=== PATIENT | female | born 1945 | race Caucasian/White ===

== ENCOUNTER 2021-09-24 00:51 | Inpatient (IN) ==
[2021-09-24] MEDS ORDERED: Naloxone 0.4 MG/ML INJ IVP PRN (04:59)
[2021-09-24] MEDS ORDERED: Acetaminophen 325 MG TABLET PO PRN (04:59)
[2021-09-24] MEDS ORDERED: Ondansetron 4 MG/2 ML VIAL IVP PRN (04:59)
[2021-09-24] MEDS ORDERED: Perflutren Lipid Microsphere 1.3 ML in 0.9 % Sodium Chloride 8.7 ML IVP PRN (05:35)
[2021-09-24] MEDS ORDERED: *HR* Heparin 5,000 UNIT/ML VIAL IVP ONE (05:42)
[2021-09-24] MEDS ORDERED: *HR* Heparin 5,000 UNIT/ML VIAL IVP PRN (05:42)
[2021-09-24] MEDS ORDERED: Heparin 25,000UNIT/250ML 1/2NS 25,000 UNIT/250 ML IV.SOLN IVC SCH (05:45)
[2021-09-24 05:58] LABS: Immature Granulocytes % 0.3 % (0-4); Red Cell Distribution Width 17.7 % (11.5-14.5)
[2021-09-24 06:00] LABS: Basophils # 0.1 K/mcL (0.0-0.2); Basophils % 0.9 %; Eosinophils # 0.3 K/mcL (0.0-0.6); Eosinophils % 3.1 %; Hematocrit 29.4 % (35.3-44.9); Hemoglobin 8.3 g/dL (11.5-15.4); Lymphocytes # 2.1 K/mcL (0.6-4.6); Lymphocytes % 23.9 %; Mean Corpuscular HGB Conc 28.2 g/dL (31.6-35.5); Mean Corpuscular Hemoglobin 25.1 pg (28.0-33.3); Mean Corpuscular Volume 88.8 fL (83.0-100.0); Mean Platelet Volume 12.7 fL (9.4-12.4); Monocytes # 0.7 K/mcL (0.0-1.3); Monocytes % 7.8 %; Neutrophils # 5.6 K/mcL (1.6-8.9); Platelet Count 218 K/mcL (140-400); Red Blood Count 3.31 M/mcL (3.82-4.97); White Blood Count 8.8 K/mcL (4.3-11.1)
[2021-09-24] MEDS: levETIRAcetam 250 MG TABLET PO SCH ×2 (06:03→17:53)
[2021-09-24 06:08] LABS: INR 1.6; Prothrombin Time 17.6 Seconds (9.4-12.1)
[2021-09-24 06:10] LABS: Activated Partial Thrombo Time 54.8 Seconds (26.0-36.0)
[2021-09-24 06:12] LABS: Acetaminophen < 10 mcg/mL (10-20); Alanine Aminotransferase 13 Units/L (7-52); Albumin 3.5 g/dL (3.5-5.7); Alkaline Phosphatase 109 Units/L (34-104); Aspartate Amino Transferase 20 Units/L (13-39); BUN/Creatinine Ratio 26 (6-26); Bilirubin,Total 0.4 mg/dL (0.3-1.0); Blood Urea Nitrogen 45 mg/dL (8-23); Calcium 8.9 mg/dL (8.6-10.3); Carbon Dioxide 31 mEq/L (23-29); Chloride 100 mEq/L (98-107); Chol/HDL Ratio 2.8 (0-4.9); Cholesterol 108 mg/dL (< 200); Globulin 3.5 g/dL (2.4-3.5); Glucose 61 mg/dL (70-105); HDL Cholesterol 38 mg/dL (40-59); LDL Cholesterol,Calculated 52 mg/dL (< 100); Osmolality,Calculated 293 (280-300); Phosphorous 4.1 mg/dL (2.7-4.5); Potassium 5.9 mEq/L (3.5-5.1); Salicylate < 2.5 mg/dL (15.0-30.0); Sodium 137 mEq/L (136-145); Triglycerides 88 mg/dL (< 150); Troponin I 0.15 ng/mL (< 0.04); eGFR For African Americans 35 (> 60); eGFR For Non-African Americans 29 (> 60)
[2021-09-24 06:15] LABS: Heparin anti-factor XA UFH 1.65 IU/mL (0.30-0.70)
[2021-09-24] MEDS ORDERED: Dextrose Gel 15 GM/37.5 ML TUBE PO PRN ×2 (06:19)
[2021-09-24] MEDS ORDERED: *HR* Dextrose 50 % in Water (Syg) 50 ML SYRINGE IVP PRN (06:19)
[2021-09-24] MEDS ORDERED: D5% in Water 1,000 ML IVC PRN (06:19)
[2021-09-24 06:20] LABS: Thyroid Stimulating Hormone 5.585 mcIU/mL (0.340-5.600)
[2021-09-24 06:26] LABS: Folate 12.4 ng/mL (3.0-16.0)
[2021-09-24] MEDS ORDERED: *HR* Dextrose 50 % in Water (Syg) 50 ML SYRINGE IVP ONE (06:39)
[2021-09-24] MEDS ORDERED: Insulin Human Regular 10 UNIT in 0.9 % Sodium Chloride 10 ML IV ONE (06:39)
[2021-09-24] MEDS ORDERED: Calcium Gluconate 1gm/50mL 1 GM/50 ML BAG IVPB ONE (06:47)
[2021-09-24 07:00] LABS: Hypochromasia Present (Not Present); Platelet Estimate Normal (Normal)
[2021-09-24] MEDS ORDERED: Ipratropium/Albuterol Neb 3 ML ONE (07:26)
[2021-09-24] MEDS: SODIUM ZIRCONIUM CYCLOSILICATE 5 GM POWD.PACK PO SCH (07:52)
[2021-09-24] MEDS: Metoprolol XL (24 HR) Succ 25 MG TAB.ER.24H PO SCH (07:52)
[2021-09-24] MEDS: Aspirin 81 MG TAB.CHEW PO SCH (07:52)
[2021-09-24] MEDS: Insulin LISPRO 300 UNITS/3 ML VIAL SUBQ SCH ×3 (07:53→16:32)
[2021-09-24] MEDS: Heparin 25,000 UNIT/250 ML 25,000 UNIT/250 ML IV.SOLN IVC SCH (08:17)
[2021-09-24] MEDS ORDERED: Chlorhexidine Rinse 15 ML MOUTHWASH MM SCH (09:00)
[2021-09-24] MEDS ORDERED: Furosemide 40 MG/4 ML VIAL IVP SCH (09:00)
[2021-09-24 09:59] LABS: Estimated Average Glucose 163 mg/dl; Hemoglobin A1C 7.3 %
[2021-09-24] MEDS: Ipratropium/Albuterol Neb 3 ML IH SCH ×3 (11:10→21:55)
[2021-09-24] MEDS: Budesonide/Formoterol 160/4.5 1 PUFF INH IH SCH ×2 (11:10→21:55)
[2021-09-24 14:04] LABS: Procalcitonin 0.14 ng/mL (0.00-0.15)
[2021-09-24 14:50] LABS: Calcium 8.9 mg/dL (8.6-10.3); Potassium 5.7 mEq/L (3.5-5.1)
[2021-09-24 14:52] LABS: Uric Acid 6.9 mg/dL (2.3-7.6)
[2021-09-24 14:56] LABS: Troponin I 0.13 ng/mL (< 0.04)
[2021-09-24] MEDS: *HR* Heparin 5,000 UNIT/ML VIAL IVP PRN ×2 (15:41→22:59)
[2021-09-24] MEDS: Furosemide 40 MG/4 ML VIAL IVP SCH (21:59)
[2021-09-24] MEDS: Melatonin 3 MG TABLET PO PRN (21:59)
[2021-09-24 23:13] LABS: Bilirubin,Urine Negative (Negative); Blood,Urine Small (Negative); Clarity,Urine Clear (Clear); Color,Urine Light-Yellow (Yellow); Glucose,Urine (UA) Normal (Normal); Ketones,Urine Negative (Negative); Leukocyte Esterase,Urine Moderate (Negative); Mucus,Urine Few per lpf (None-Few); Nitrite,Urine Negative (Negative); Protein,Urine 100 mg/dL (Neg-Trace); RBC,Urine 15-30 per hpf (0-3); Specific Gravity,Urine 1.017 (1.010-1.025); Squamous Epithelial Cell,Urine Few per hpf (None-Few); Urobilinogen,Urine Normal (Normal)
[2021-09-24 23:21] LABS: Sodium, Urine 84.9 mEq/L
[2021-09-24 23:22] LABS: Amphetamine Screen,Urine Negative ng/mL (Cutoff=1000); Barbiturate Screen,Urine Negative ng/mL (Cutoff=200); Benzodiazepines Screen,Urine Negative ng/mL (Cutoff=200); Cannabinoid Screen,Urine Negative ng/mL (Cutoff = 50); Cocaine Screen,Urine Negative ng/mL (Cutoff= 300); Opiate Screen,Urine Negative ng/mL (Cutoff=300); Phencyclidine Screen,Urine Negative ng/mL (Cutoff=25)
[2021-09-25] MEDS ORDERED: *HR* LORazepam 2 MG/ML VIAL IVP ONE (00:19)
[2021-09-25] MEDS ORDERED: Haloperidol Lactate 5 MG/ML VIAL IVP ONE ×4 (01:54→10:53)
[2021-09-25 03:18] LABS: Basophils # 0.1 K/mcL (0.0-0.2); Basophils % 0.5 %; Eosinophils # 0.3 K/mcL (0.0-0.6); Eosinophils % 3.2 %; Hematocrit 28.4 % (35.3-44.9); Hemoglobin 8.2 g/dL (11.5-15.4); Immature Granulocytes % 0.4 % (0-4); Lymphocytes # 2.3 K/mcL (0.6-4.6); Lymphocytes % 22.9 %; Mean Corpuscular HGB Conc 28.9 g/dL (31.6-35.5); Mean Corpuscular Hemoglobin 25.2 pg (28.0-33.3); Mean Corpuscular Volume 87.1 fL (83.0-100.0); Mean Platelet Volume 12.4 fL (9.4-12.4); Monocytes # 0.8 K/mcL (0.0-1.3); Monocytes % 7.5 %; Nucleated Red Blood Cells 0.2 /100 WBC (0); Platelet Count 191 K/mcL (140-400); Red Blood Count 3.26 M/mcL (3.82-4.97); Red Cell Distribution Width 17.7 % (11.5-14.5); Segmented Neutrophils % 65.5 %
[2021-09-25 03:18] LABS: VBG HCO3 30 mEq/L (21-27); VBG PCO2 48 mmHg (41-51); VBG PO2 61 mmHg (25-50)
[2021-09-25 03:19] LABS: Neutrophils # 6.6 K/mcL (1.6-8.9)
[2021-09-25] MEDS: Ipratropium/Albuterol Neb 3 ML IH SCH ×4 (03:29→20:10)
[2021-09-25 03:36] LABS: Anisocytosis 1+ (Not Present); Hypochromasia Present (Not Present); Potassium 5.2 mEq/L (3.5-5.1)
[2021-09-25 03:37] LABS: Platelet Estimate Normal (Normal)
[2021-09-25 03:42] LABS: Iron 23 mcg/dL (50-170)
[2021-09-25] MEDS: Heparin 25,000 UNIT/250 ML 25,000 UNIT/250 ML IV.SOLN IVC SCH ×2 (04:51→04:53)
[2021-09-25 05:07] LABS: ABG Base Excess 8 mEq/L (-2 to 3); ABG HCO3 35 mEq/L (21-27); ABG Oxygen Saturation 99 % (95-98); ABG PCO2 65 mmHg (35-45); ABG PH 7.34 pH Units (7.32-7.45); ABG PO2 162 mmHg (85-104); ABG TCO2 37 mEq/L (20-26)
[2021-09-25] MEDS ORDERED: levETIRAcetam 1,000 MG in 0.9 % Sodium Chloride 100 ML IVPB ONE (06:39)
[2021-09-25] MEDS: levETIRAcetam 250 MG TABLET PO SCH (06:47)
[2021-09-25] MEDS: Insulin LISPRO 300 UNITS/3 ML VIAL SUBQ SCH ×3 (07:48→16:52)
[2021-09-25] MEDS: Furosemide 40 MG/4 ML VIAL IVP SCH ×2 (07:48→21:22)
[2021-09-25] MEDS: Budesonide/Formoterol 160/4.5 1 PUFF INH IH SCH ×2 (08:13→20:10)
[2021-09-25] MEDS: Metoprolol XL (24 HR) Succ 25 MG TAB.ER.24H PO SCH (08:52)
[2021-09-25] MEDS: SODIUM ZIRCONIUM CYCLOSILICATE 5 GM POWD.PACK PO SCH (08:52)
[2021-09-25] MEDS: Aspirin 81 MG TAB.CHEW PO SCH (08:53)
[2021-09-25] MEDS ORDERED: *HR* Metoprolol 5 MG/5 ML VIAL IVP PRN (11:07)
[2021-09-25] MEDS ORDERED: *HR* Metoprolol 5 MG/5 ML VIAL IVP SCH (12:15)
[2021-09-25 15:12] LABS: Ferritin 105 ng/mL (10-120)
[2021-09-25] MEDS ORDERED: levETIRAcetam 250 MG TABLET PO SCH (18:00)
[2021-09-25] MEDS: QUEtiapine Fumarate 25 MG TABLET PO SCH (21:06)
[2021-09-25] MEDS: *HR* Metoprolol 5 MG/5 ML VIAL IVP SCH (21:19)
[2021-09-25] MEDS: levETIRAcetam 1,000 MG in 0.9 % Sodium Chloride 100 ML IVPB SCH (21:24)
[2021-09-25] MEDS: *HR* Heparin 5,000 UNIT/ML VIAL IVP PRN (22:15)
[2021-09-26] MEDS ORDERED: Haloperidol Lactate 5 MG/ML VIAL IVP ONE ×4 (00:17→22:17)
[2021-09-26] MEDS: *HR* Metoprolol 5 MG/5 ML VIAL IVP SCH ×4 (02:57→20:03)
[2021-09-26] MEDS: Ipratropium/Albuterol Neb 3 ML IH SCH ×4 (03:40→19:39)
[2021-09-26 06:10] LABS: Calcium 8.8 mg/dL (8.6-10.3); Magnesium 1.7 mg/dL (1.6-2.6); Potassium 4.5 mEq/L (3.5-5.1)
[2021-09-26 06:17] LABS: Basophils # 0.1 K/mcL (0.0-0.2); Basophils % 0.8 %; Eosinophils # 0.2 K/mcL (0.0-0.6); Hematocrit 27.1 % (35.3-44.9); Hemoglobin 7.7 g/dL (11.5-15.4); Immature Granulocytes % 0.3 % (0-4); Lymphocytes # 1.7 K/mcL (0.6-4.6); Mean Corpuscular HGB Conc 28.4 g/dL (31.6-35.5); Mean Platelet Volume 12.8 fL (9.4-12.4); Monocytes # 0.6 K/mcL (0.0-1.3); Monocytes % 8.2 %; Neutrophils # 4.5 K/mcL (1.6-8.9); Platelet Count 169 K/mcL (140-400); Red Blood Count 3.08 M/mcL (3.82-4.97); Red Cell Distribution Width 17.9 % (11.5-14.5); Segmented Neutrophils % 63.7 %; White Blood Count 7.1 K/mcL (4.3-11.1)
[2021-09-26] MEDS: Aspirin 81 MG TAB.CHEW PO SCH (08:14)
[2021-09-26] MEDS: Insulin LISPRO 300 UNITS/3 ML VIAL SUBQ SCH ×4 (08:14→17:04)
[2021-09-26] MEDS: SODIUM ZIRCONIUM CYCLOSILICATE 5 GM POWD.PACK PO SCH (08:15)
[2021-09-26] MEDS: Heparin 25,000 UNIT/250 ML 25,000 UNIT/250 ML IV.SOLN IVC SCH ×2 (08:16)
[2021-09-26] MEDS: Furosemide 40 MG/4 ML VIAL IVP SCH ×2 (08:33→20:03)
[2021-09-26] MEDS: levETIRAcetam 1,000 MG in 0.9 % Sodium Chloride 100 ML IVPB SCH ×2 (09:45→20:02)
[2021-09-26] MEDS: Budesonide/Formoterol 160/4.5 1 PUFF INH IH SCH ×2 (09:50→19:40)
[2021-09-26] MEDS: QUEtiapine Fumarate 25 MG TABLET PO SCH (20:04)
[2021-09-26] MEDS ORDERED: *HR* HYDROcodone/Acet 10/325 mg TABLET PO ONE (21:35)
[2021-09-26] MEDS ORDERED: *HR* Metoprolol 5 MG/5 ML VIAL IVP ONE (21:59)
[2021-09-26] MEDS: rOPINIRole 0.25 MG TABLET PO SCH (23:01)
[2021-09-27] MEDS: Pregabalin 50 MG CAPSULE PO SCH ×3 (00:03→20:33)
[2021-09-27] MEDS ORDERED: *HR* Metoprolol 5 MG/5 ML VIAL IVP ONE (01:14)
[2021-09-27] MEDS: *HR* Metoprolol 5 MG/5 ML VIAL IVP SCH ×4 (01:28→20:33)
[2021-09-27] MEDS: Ipratropium/Albuterol Neb 3 ML IH SCH ×4 (03:46→23:03)
[2021-09-27 04:07] LABS: Basophils % 0.4 %; Eosinophils % 0.4 %; Hematocrit 27.7 % (35.3-44.9); Immature Granulocytes % 0.4 % (0-4); Lymphocytes # 1.2 K/mcL (0.6-4.6); Lymphocytes % 15.1 %; Mean Corpuscular HGB Conc 28.9 g/dL (31.6-35.5); Mean Corpuscular Hemoglobin 24.8 pg (28.0-33.3); Mean Corpuscular Volume 85.8 fL (83.0-100.0); Mean Platelet Volume 11.8 fL (9.4-12.4); Monocytes # 0.8 K/mcL (0.0-1.3); Monocytes % 10.5 %; Neutrophils # 5.7 K/mcL (1.6-8.9); Platelet Count 181 K/mcL (140-400); Red Blood Count 3.23 M/mcL (3.82-4.97); Red Cell Distribution Width 17.8 % (11.5-14.5); Segmented Neutrophils % 73.2 %; White Blood Count 7.8 K/mcL (4.3-11.1)
[2021-09-27 04:17] LABS: Calcium 8.8 mg/dL (8.6-10.3); Potassium 4.4 mEq/L (3.5-5.1)
[2021-09-27] MEDS: Budesonide/Formoterol 160/4.5 1 PUFF INH IH SCH ×2 (07:49→23:03)
[2021-09-27] MEDS: Aspirin 81 MG TAB.CHEW PO SCH (08:46)
[2021-09-27] MEDS: levETIRAcetam 1,000 MG in 0.9 % Sodium Chloride 100 ML IVPB SCH (08:47)
[2021-09-27] MEDS: Insulin LISPRO 300 UNITS/3 ML VIAL SUBQ SCH ×3 (08:48→16:42)
[2021-09-27] MEDS: Furosemide 40 MG TABLET PO SCH ×2 (12:02→16:42)
[2021-09-27] MEDS: Isosorbide MONOnitrate (24 HR) 30 MG TAB.ER.24H PO SCH (12:02)
[2021-09-27] MEDS: levETIRAcetam 250 MG TABLET PO SCH (16:41)
[2021-09-27] MEDS: hydrALAZINE 25 MG TABLET PO SCH (16:42)
[2021-09-27] MEDS: QUEtiapine Fumarate 25 MG TABLET PO SCH (20:33)
[2021-09-27] MEDS: rOPINIRole 0.25 MG TABLET PO SCH (20:35)
[2021-09-28] MEDS: hydrALAZINE 25 MG TABLET PO SCH ×4 (00:06→23:11)
[2021-09-28] MEDS: Ipratropium/Albuterol Neb 3 ML IH SCH ×4 (04:45→20:36)
[2021-09-28] MEDS: levETIRAcetam 250 MG TABLET PO SCH ×2 (05:14→18:26)
[2021-09-28 05:26] LABS: Hemoglobin 7.2 g/dL (11.5-15.4); Red Cell Distribution Width 17.8 % (11.5-14.5)
[2021-09-28 05:27] LABS: Hematocrit 25.3 % (35.3-44.9); Mean Corpuscular HGB Conc 28.5 g/dL (31.6-35.5); Mean Corpuscular Hemoglobin 24.8 pg (28.0-33.3); Mean Corpuscular Volume 87.2 fL (83.0-100.0); Mean Platelet Volume 12.5 fL (9.4-12.4); Platelet Count 143 K/mcL (140-400); White Blood Count 8.1 K/mcL (4.3-11.1)
[2021-09-28 05:45] LABS: Iron 14 mcg/dL (50-170)
[2021-09-28 05:53] LABS: Calcium 8.5 mg/dL (8.6-10.3)
[2021-09-28] MEDS: Insulin LISPRO 300 UNITS/3 ML VIAL SUBQ SCH ×3 (08:17→17:05)
[2021-09-28] MEDS: Furosemide 40 MG TABLET PO SCH ×2 (08:18→16:21)
[2021-09-28] MEDS: Metoprolol XL (24 HR) Succ 25 MG TAB.ER.24H PO SCH (08:18)
[2021-09-28] MEDS: Aspirin 81 MG TAB.CHEW PO SCH (08:18)
[2021-09-28] MEDS: Isosorbide MONOnitrate (24 HR) 30 MG TAB.ER.24H PO SCH (08:18)
[2021-09-28] MEDS: Pregabalin 50 MG CAPSULE PO SCH ×2 (08:18→19:57)
[2021-09-28] MEDS ORDERED: Furosemide 40 MG/4 ML VIAL IVP SCH (09:00)
[2021-09-28] MEDS: Budesonide/Formoterol 160/4.5 1 PUFF INH IH SCH ×2 (09:54→20:36)
[2021-09-28 10:52] LABS: % Iron Saturation 4 % (15-50); Transferrin 237 mg/dL (203-362)
[2021-09-28] MEDS ORDERED: SODIUM CHLORIDE/NAHCO3/KCL/PEG 4,000 ML SOLN.RECON PO ONE (17:00)
[2021-09-28] MEDS: rOPINIRole 1 MG TABLET PO SCH (19:57)
[2021-09-28] MEDS: QUEtiapine Fumarate 25 MG TABLET PO SCH (19:58)
[2021-09-29] MEDS: Ipratropium/Albuterol Neb 3 ML IH SCH ×4 (03:25→20:56)
[2021-09-29] MEDS: levETIRAcetam 250 MG TABLET PO SCH ×2 (05:03→18:07)
[2021-09-29 05:34] LABS: Basophils % 0.2 %; Red Cell Distribution Width 17.5 % (11.5-14.5)
[2021-09-29 05:36] LABS: Eosinophils # 0.2 K/mcL (0.0-0.6); Eosinophils % 2.6 %; Hematocrit 27.4 % (35.3-44.9); Hemoglobin 7.7 g/dL (11.5-15.4); Immature Granulocytes % 0.2 % (0-4); Lymphocytes # 1.2 K/mcL (0.6-4.6); Lymphocytes % 13.8 %; Mean Corpuscular HGB Conc 28.1 g/dL (31.6-35.5); Mean Corpuscular Hemoglobin 24.5 pg (28.0-33.3); Mean Corpuscular Volume 87.3 fL (83.0-100.0); Mean Platelet Volume 12.1 fL (9.4-12.4); Monocytes # 0.8 K/mcL (0.0-1.3); Neutrophils # 6.6 K/mcL (1.6-8.9); Nucleated Red Blood Cells 0.2 /100 WBC (0); Platelet Count 141 K/mcL (140-400); Red Blood Count 3.14 M/mcL (3.82-4.97); Segmented Neutrophils % 74.2 %; White Blood Count 8.9 K/mcL (4.3-11.1)
[2021-09-29 06:50] LABS: Calcium 8.5 mg/dL (8.6-10.3); Potassium 3.8 mEq/L (3.5-5.1)
[2021-09-29] MEDS: Isosorbide MONOnitrate (24 HR) 30 MG TAB.ER.24H PO SCH (07:45)
[2021-09-29] MEDS: Pregabalin 50 MG CAPSULE PO SCH ×2 (07:45→20:02)
[2021-09-29] MEDS: hydrALAZINE 25 MG TABLET PO SCH ×3 (07:45→23:17)
[2021-09-29] MEDS: Metoprolol XL (24 HR) Succ 25 MG TAB.ER.24H PO SCH (07:46)
[2021-09-29] MEDS: Insulin LISPRO 300 UNITS/3 ML VIAL SUBQ SCH ×3 (07:48→18:07)
[2021-09-29] MEDS: Furosemide 40 MG TABLET PO SCH ×2 (07:48→18:07)
[2021-09-29] MEDS: Aspirin 81 MG TAB.CHEW PO SCH (07:48)
[2021-09-29] MEDS: Budesonide/Formoterol 160/4.5 1 PUFF INH IH SCH ×2 (08:47→20:56)
[2021-09-29] MEDS ORDERED: Lidocaine -MPF 2% 5 ML VIAL ONE (13:50)
[2021-09-29] MEDS: QUEtiapine Fumarate 25 MG TABLET PO SCH (20:03)
[2021-09-29] MEDS: Apixaban 5 MG TABLET PO SCH (20:03)
[2021-09-29] MEDS: rOPINIRole 1 MG TABLET PO SCH (20:03)
[2021-09-30] MEDS ORDERED: *HR* Metoprolol 5 MG/5 ML VIAL IVP ONE (01:55)
[2021-09-30] MEDS: Ipratropium/Albuterol Neb 3 ML IH SCH ×4 (03:34→21:19)
[2021-09-30] MEDS: levETIRAcetam 250 MG TABLET PO SCH ×2 (05:07→16:19)
[2021-09-30 05:35] LABS: Basophils % 0.2 %; Eosinophils # 0.2 K/mcL (0.0-0.6); Eosinophils % 2.2 %; Hematocrit 28.1 % (35.3-44.9); Immature Granulocytes % 0.3 % (0-4); Lymphocytes # 1.4 K/mcL (0.6-4.6); Lymphocytes % 15.2 %; Mean Corpuscular HGB Conc 28.5 g/dL (31.6-35.5); Mean Corpuscular Hemoglobin 24.5 pg (28.0-33.3); Mean Corpuscular Volume 86.2 fL (83.0-100.0); Mean Platelet Volume 12.3 fL (9.4-12.4); Monocytes # 0.9 K/mcL (0.0-1.3); Monocytes % 9.9 %; Neutrophils # 6.5 K/mcL (1.6-8.9); Platelet Count 147 K/mcL (140-400); Red Blood Count 3.26 M/mcL (3.82-4.97); Red Cell Distribution Width 17.4 % (11.5-14.5); Segmented Neutrophils % 72.2 %
[2021-09-30 05:37] LABS: Calcium 8.4 mg/dL (8.6-10.3); Potassium 3.7 mEq/L (3.5-5.1)
[2021-09-30 05:55] LABS: Anisocytosis 1+ (Not Present); Hypochromasia Present (Not Present); Platelet Estimate Normal (Normal)
[2021-09-30] MEDS: Insulin LISPRO 300 UNITS/3 ML VIAL SUBQ SCH ×3 (08:49→16:19)
[2021-09-30] MEDS: Aspirin 81 MG TAB.CHEW PO SCH (08:55)
[2021-09-30] MEDS: hydrALAZINE 25 MG TABLET PO SCH (08:55)
[2021-09-30] MEDS: Apixaban 5 MG TABLET PO SCH ×2 (08:57→20:15)
[2021-09-30] MEDS: Furosemide 40 MG TABLET PO SCH ×2 (08:58→16:19)
[2021-09-30] MEDS: Metoprolol XL (24 HR) Succ 25 MG TAB.ER.24H PO SCH (08:58)
[2021-09-30] MEDS: Isosorbide MONOnitrate (24 HR) 30 MG TAB.ER.24H PO SCH (08:58)
[2021-09-30] MEDS: Pregabalin 50 MG CAPSULE PO SCH ×2 (08:58→20:15)
[2021-09-30 09:44] LABS: % Iron Saturation 6 % (15-50); Transferrin 284 mg/dL (200-400)
[2021-09-30] MEDS: Budesonide/Formoterol 160/4.5 1 PUFF INH IH SCH ×2 (11:01→21:19)
[2021-09-30] MEDS ORDERED: Iron Sucrose Complex 400 MG in 0.9 % Sodium Chloride 250 ML IVPB ONE (14:14)
[2021-09-30] MEDS: rOPINIRole 1 MG TABLET PO SCH (20:14)
[2021-09-30] MEDS: QUEtiapine Fumarate 25 MG TABLET PO SCH (20:16)
[2021-10-01] MEDS: Melatonin 3 MG TABLET PO PRN (00:55)
[2021-10-01] MEDS ORDERED: *HR* Metoprolol 5 MG/5 ML VIAL IVP ONE (01:44)
[2021-10-01] MEDS: Ipratropium/Albuterol Neb 3 ML IH SCH ×4 (03:28→22:07)
[2021-10-01 03:35] LABS: ABG Base Excess 9 mEq/L (-2 to 3); ABG HCO3 36 mEq/L (21-27); ABG Oxygen Saturation 91 % (95-98); ABG PCO2 55 mmHg (35-45); ABG PH 7.42 pH Units (7.32-7.45); ABG PO2 63 mmHg (85-104); ABG TCO2 37 mEq/L (20-26)
[2021-10-01 04:28] LABS: Basophils % 0.3 %; Eosinophils # 0.2 K/mcL (0.0-0.6); Eosinophils % 2.2 %; Hemoglobin 8.4 g/dL (11.5-15.4); Immature Granulocytes % 0.4 % (0-4); Lymphocytes # 1.8 K/mcL (0.6-4.6); Lymphocytes % 17.2 %; Mean Corpuscular Hemoglobin 24.7 pg (28.0-33.3); Mean Corpuscular Volume 85.3 fL (83.0-100.0); Mean Platelet Volume 11.6 fL (9.4-12.4); Monocytes # 0.9 K/mcL (0.0-1.3); Monocytes % 8.5 %; Neutrophils # 7.4 K/mcL (1.6-8.9); Platelet Count 161 K/mcL (140-400); Red Cell Distribution Width 17.3 % (11.5-14.5); Segmented Neutrophils % 71.4 %; White Blood Count 10.4 K/mcL (4.3-11.1)
[2021-10-01 04:45] LABS: Calcium 8.2 mg/dL (8.6-10.3); Potassium 3.6 mEq/L (3.5-5.1)
[2021-10-01] MEDS: levETIRAcetam 250 MG TABLET PO SCH ×2 (05:24→18:25)
[2021-10-01] MEDS: Metoprolol XL (24 HR) Succ 25 MG TAB.ER.24H PO SCH (09:54)
[2021-10-01] MEDS: Insulin LISPRO 300 UNITS/3 ML VIAL SUBQ SCH ×3 (09:54→16:58)
[2021-10-01] MEDS: Isosorbide MONOnitrate (24 HR) 30 MG TAB.ER.24H PO SCH (09:55)
[2021-10-01] MEDS: Aspirin 81 MG TAB.CHEW PO SCH (09:55)
[2021-10-01] MEDS: Apixaban 5 MG TABLET PO SCH ×2 (09:55→20:13)
[2021-10-01] MEDS: Pregabalin 50 MG CAPSULE PO SCH ×2 (09:55→20:13)
[2021-10-01] MEDS: Furosemide 40 MG TABLET PO SCH ×2 (09:57→18:25)
[2021-10-01] MEDS: Budesonide/Formoterol 160/4.5 1 PUFF INH IH SCH ×2 (09:57→22:07)
[2021-10-01 13:46] LABS: VBG HCO3 36 mEq/L (21-27); VBG PCO2 71 mmHg (41-51); VBG PH 7.32 pH Units (7.32-7.42); VBG PO2 92 mmHg (25-50)
[2021-10-01 17:02] LABS: VBG HCO3 40 mEq/L (21-27); VBG PCO2 81 mmHg (41-51); VBG PO2 67 mmHg (25-50)
[2021-10-01] MEDS ORDERED: methylPREDNISolone 125 MG/2 ML VIAL IVP ONE (19:00)
[2021-10-01] MEDS: rOPINIRole 1 MG TABLET PO SCH (20:13)
[2021-10-01 22:13] LABS: Adenovirus Not Detected (Not Detect); Bordetella Pertussis Not Detected (Not Detect); Chlamydophila pneumoniae Not Detected (Not Detect); Coronavirus 229E Not Detected (Not Detect); Coronavirus HKU1 Not Detected (Not Detect); Coronavirus NL63 Not Detected (Not Detect); Coronavirus OC43 Not Detected (Not Detect); Human Metapneumovirus Not Detected (Not Detect); Human Rhinovirus/Enterovirus Not Detected (Not Detect); Influenza A Subtype 2009 H1 Not Detected (Not Detect); Influenza B Not Detected (Not Detect); Mycoplasma pneumoniae Not Detected (Not Detect); Parainfluenza Virus 1 Not Detected (Not Detect); Parainfluenza Virus 2 Not Detected (Not Detect); Parainfluenza Virus 3 Not Detected (Not Detect); Parainfluenza Virus 4 Not Detected (Not Detect); Respiratory Syncytial Virus Not Detected (Not Detect); SARS-CoV-2 Not Detected (Not Detect)
[2021-10-01 22:32] LABS: Blood Gas VT 550 cc; Mixed Venous Blood pCO2 57 mmHg (44-46); Mixed Venous Blood pH 7.41 pH Units (7.34-7.36); Mixed Venous Blood pO2 50 mmHg (35-45)
[2021-10-01 22:33] LABS: VBG HCO3 38 mEq/L (21-27); VBG PCO2 62 mmHg (41-51); VBG PH 7.39 pH Units (7.32-7.42); VBG PO2 160 mmHg (25-50)
[2021-10-02] MEDS: Ipratropium/Albuterol Neb 3 ML IH SCH ×4 (04:05→21:23)
[2021-10-02] MEDS: levETIRAcetam 250 MG TABLET PO SCH ×2 (05:59→17:04)
[2021-10-02] MEDS ORDERED: MethylPREDNISolone 40 MG/ML VIAL IVP SCH (07:00)
[2021-10-02] MEDS: Insulin LISPRO 300 UNITS/3 ML VIAL SUBQ SCH ×4 (07:50→20:43)
[2021-10-02] MEDS: Pregabalin 50 MG CAPSULE PO SCH ×2 (07:51→19:49)
[2021-10-02] MEDS: Furosemide 40 MG TABLET PO SCH ×2 (07:51→17:04)
[2021-10-02] MEDS: Aspirin 81 MG TAB.CHEW PO SCH (07:51)
[2021-10-02] MEDS: Isosorbide MONOnitrate (24 HR) 30 MG TAB.ER.24H PO SCH (07:51)
[2021-10-02] MEDS: Apixaban 5 MG TABLET PO SCH ×2 (07:52→19:50)
[2021-10-02 07:57] LABS: Lymphocytes % 6.2 %; Monocytes % 0.9 %; Platelet Count 179 K/mcL (140-400)
[2021-10-02 07:59] LABS: Hematocrit 31.5 % (35.3-44.9); Hemoglobin 8.6 g/dL (11.5-15.4); Immature Granulocytes % 0.3 % (0-4); Immature Platelets 12.6 % (1.1-6.1); Lymphocytes # 0.5 K/mcL (0.6-4.6); Mean Corpuscular HGB Conc 27.3 g/dL (31.6-35.5); Mean Platelet Volume 12.8 fL (9.4-12.4); Monocytes # 0.1 K/mcL (0.0-1.3); Neutrophils # 7.2 K/mcL (1.6-8.9); Red Blood Count 3.58 M/mcL (3.82-4.97); Red Cell Distribution Width 17.3 % (11.5-14.5); Segmented Neutrophils % 92.6 %; White Blood Count 7.8 K/mcL (4.3-11.1)
[2021-10-02 08:01] LABS: Calcium 8.5 mg/dL (8.6-10.3); Potassium 4.4 mEq/L (3.5-5.1)
[2021-10-02 09:51] LABS: Hypochromasia Present (Not Present); Platelet Estimate Normal (Normal)
[2021-10-02] MEDS: Budesonide/Formoterol 160/4.5 1 PUFF INH IH SCH ×2 (10:33→21:23)
[2021-10-02] MEDS: rOPINIRole 1 MG TABLET PO SCH (19:50)
[2021-10-03] MEDS: Ipratropium/Albuterol Neb 3 ML IH SCH ×4 (03:05→20:22)
[2021-10-03] MEDS: levETIRAcetam 250 MG TABLET PO SCH ×2 (05:47→17:06)
[2021-10-03 08:02] LABS: Hematocrit 25.8 % (35.3-44.9); Hemoglobin 7.7 g/dL (11.5-15.4); Mean Corpuscular HGB Conc 29.8 g/dL (31.6-35.5); Mean Corpuscular Hemoglobin 25.1 pg (28.0-33.3); Mean Platelet Volume 11.7 fL (9.4-12.4); Neutrophils # 7.9 K/mcL (1.6-8.9); Platelet Count 210 K/mcL (140-400); Red Blood Count 3.07 M/mcL (3.82-4.97); Red Cell Distribution Width 17.3 % (11.5-14.5); White Blood Count 10.8 K/mcL (4.3-11.1)
[2021-10-03 08:10] LABS: VBG HCO3 33 mEq/L (21-27); VBG PCO2 47 mmHg (41-51); VBG PH 7.46 pH Units (7.32-7.42); VBG PO2 76 mmHg (25-50)
[2021-10-03] MEDS: Budesonide/Formoterol 160/4.5 1 PUFF INH IH SCH ×2 (08:18→20:22)
[2021-10-03 08:22] LABS: Potassium 3.7 mEq/L (3.5-5.1)
[2021-10-03] MEDS: Aspirin 81 MG TAB.CHEW PO SCH (08:54)
[2021-10-03] MEDS: Pregabalin 50 MG CAPSULE PO SCH ×2 (08:54→20:34)
[2021-10-03] MEDS: Furosemide 40 MG TABLET PO SCH ×2 (08:54→17:06)
[2021-10-03] MEDS: Isosorbide MONOnitrate (24 HR) 30 MG TAB.ER.24H PO SCH (08:54)
[2021-10-03] MEDS: Apixaban 5 MG TABLET PO SCH ×2 (08:54→20:34)
[2021-10-03] MEDS: Insulin LISPRO 300 UNITS/3 ML VIAL SUBQ SCH ×4 (08:54→20:34)
[2021-10-03] MEDS ORDERED: predniSONE 20 MG TABLET PO SCH (09:00)
[2021-10-03 10:11] LABS: Lymphocytes # 2.5 K/mcL (0.6-4.6); Monocytes # 0.4 K/mcL (0.0-1.3)
[2021-10-03 10:12] LABS: Anisocytosis 1+ (Not Present); Hypochromasia Present (Not Present); Platelet Estimate Normal (Normal); Poikilocytosis 1+ (Not Present)
[2021-10-03] MEDS: rOPINIRole 1 MG TABLET PO SCH (20:33)
[2021-10-04 02:26] LABS: Hemoglobin 7.7 g/dL (11.5-15.4); Red Cell Distribution Width 17.4 % (11.5-14.5)
[2021-10-04 02:28] LABS: Hematocrit 25.7 % (35.3-44.9); Immature Platelets 10.6 % (1.1-6.1); Mean Corpuscular Hemoglobin 24.7 pg (28.0-33.3); Mean Corpuscular Volume 82.4 fL (83.0-100.0); Mean Platelet Volume 13.1 fL (9.4-12.4); Red Blood Count 3.12 M/mcL (3.82-4.97); White Blood Count 9.9 K/mcL (4.3-11.1)
[2021-10-04 02:38] LABS: Calcium 8.1 mg/dL (8.6-10.3); Potassium 4.3 mEq/L (3.5-5.1)
[2021-10-04] MEDS: Ipratropium/Albuterol Neb 3 ML IH SCH ×4 (04:18→20:38)
[2021-10-04] MEDS: levETIRAcetam 250 MG TABLET PO SCH ×2 (05:12→18:14)
[2021-10-04] MEDS: Insulin LISPRO 300 UNITS/3 ML VIAL SUBQ SCH ×4 (06:43→20:38)
[2021-10-04] MEDS ORDERED: Insulin Human Regular 10 UNIT in 0.9 % Sodium Chloride 10 ML IV ONE (07:08)
[2021-10-04] MEDS: Aspirin 81 MG TAB.CHEW PO SCH (09:24)
[2021-10-04] MEDS: Furosemide 40 MG TABLET PO SCH ×2 (09:24→18:14)
[2021-10-04] MEDS: Insulin DETEMIR 100 UNIT/ML X5UNITS SUBQ SCH (09:24)
[2021-10-04] MEDS: Apixaban 5 MG TABLET PO SCH ×2 (09:24→20:40)
[2021-10-04] MEDS: Isosorbide MONOnitrate (24 HR) 30 MG TAB.ER.24H PO SCH (09:25)
[2021-10-04] MEDS: Pregabalin 50 MG CAPSULE PO SCH ×2 (09:25→20:40)
[2021-10-04] MEDS: Budesonide/Formoterol 160/4.5 1 PUFF INH IH SCH ×2 (10:07→20:38)
[2021-10-04] MEDS: rOPINIRole 1 MG TABLET PO SCH (20:39)
[2021-10-04] MEDS: Melatonin 3 MG TABLET PO PRN (20:41)
[2021-10-05] MEDS: Ipratropium/Albuterol Neb 3 ML IH SCH ×4 (04:15→21:23)
[2021-10-05] MEDS: levETIRAcetam 250 MG TABLET PO SCH ×2 (05:55→17:17)
[2021-10-05 08:21] LABS: Calcium 8.1 mg/dL (8.6-10.3); Potassium 3.6 mEq/L (3.5-5.1)
[2021-10-05] MEDS: Pregabalin 50 MG CAPSULE PO SCH ×2 (09:10→19:40)
[2021-10-05] MEDS: Isosorbide MONOnitrate (24 HR) 30 MG TAB.ER.24H PO SCH (09:10)
[2021-10-05] MEDS: Aspirin 81 MG TAB.CHEW PO SCH (09:10)
[2021-10-05] MEDS: Apixaban 5 MG TABLET PO SCH ×2 (09:10→19:40)
[2021-10-05] MEDS: Furosemide 40 MG TABLET PO SCH ×2 (09:10→17:18)
[2021-10-05] MEDS: Metoprolol XL (24 HR) Succ 25 MG TAB.ER.24H PO SCH (09:10)
[2021-10-05] MEDS: Insulin LISPRO 300 UNITS/3 ML VIAL SUBQ SCH ×4 (09:14→21:46)
[2021-10-05] MEDS: Insulin DETEMIR 100 UNIT/ML X5UNITS SUBQ SCH (09:14)
[2021-10-05] MEDS: Budesonide/Formoterol 160/4.5 1 PUFF INH IH SCH ×2 (09:56→21:24)
[2021-10-05] MEDS ORDERED: Insulin DETEMIR 100 UNIT/ML X5UNITS SUBQ ONE (16:03)
[2021-10-05 18:19] LABS: Influenza A PCR Negative (Negative); Influenza B PCR Negative (Negative); Resp. Syncytial Virus PCR Negative (Negative)
[2021-10-05 18:24] LABS: SARS-CoV-2 by PCR (In House) Negative (Negative)
[2021-10-05 18:45] VITALS: BP 126/60; PULSE 75; TEMP 98.2
[2021-10-05] MEDS: rOPINIRole 1 MG TABLET PO SCH (19:40)
[2021-10-05 21:26] VITALS: O2SAT 100
== END 2021-10-05 21:55 | DRG 280 ==
LOC: 2ANU → SUATTDRO 09-25 13:22
PROVIDERS: ADMIT Internal Medicine; ATTEND Internal Medicine
PROC: ENDOEBX (2021-09-29 13:45)
PROC: ENDOCBX (2021-09-29 13:45)

== ENCOUNTER 2022-01-15 18:12 | Inpatient (IN) ==
[2022-01-15] MEDS ORDERED: Naloxone 0.4 MG/ML INJ IVP PRN (22:26)
[2022-01-16 00:57] LABS: Eosinophils % 3.3 %
[2022-01-16 00:59] LABS: Basophils % 0.5 %; Eosinophils # 0.3 K/mcL (0.0-0.6); Hematocrit 25.3 % (35.3-44.9); Immature Granulocytes % 0.3 % (0-4); Lymphocytes # 1.1 K/mcL (0.6-4.6); Lymphocytes % 14.1 %; Mean Corpuscular HGB Conc 27.7 g/dL (31.6-35.5); Mean Corpuscular Hemoglobin 24.1 pg (28.0-33.3); Mean Corpuscular Volume 86.9 fL (83.0-100.0); Mean Platelet Volume 12.3 fL (9.4-12.4); Monocytes # 0.8 K/mcL (0.0-1.3); Monocytes % 10.9 %; Neutrophils # 5.3 K/mcL (1.6-8.9); Nucleated Red Blood Cells 0.3 /100 WBC (0); Platelet Count 133 K/mcL (140-400); Red Blood Count 2.91 M/mcL (3.82-4.97); Red Cell Distribution Width 19.4 % (11.5-14.5); Segmented Neutrophils % 70.9 %; White Blood Count 7.5 K/mcL (4.3-11.1)
[2022-01-16 01:15] LABS: Albumin 3.1 g/dL (3.5-5.7); Bilirubin,Total 0.4 mg/dL (0.3-1.0); Calcium 8.6 mg/dL (8.6-10.3); Globulin 3.2 g/dL (2.4-3.5); Potassium 5.5 mEq/L (3.5-5.1); Total Protein 6.3 g/dL (6.4-8.9)
[2022-01-16 01:16] LABS: Magnesium 1.7 mg/dL (1.6-2.6)
[2022-01-16] MEDS ORDERED: *HR* Dextrose 50 % in Water (Syg) 50 ML SYRINGE IVP PRN (01:16)
[2022-01-16] MEDS ORDERED: D5% in Water 1,000 ML IVC PRN (01:16)
[2022-01-16] MEDS ORDERED: Dextrose 4 GM Chewable Tablets PO PRN ×2 (01:16)
[2022-01-16 01:18] LABS: Troponin I < 0.03 ng/mL (< 0.04)
[2022-01-16] MEDS ORDERED: Calcium Gluconate 1gm/50mL 1 GM/50 ML BAG IVPB ONE (01:18)
[2022-01-16 01:19] LABS: VBG HCO3 28 mEq/L (21-27); VBG PCO2 70 mmHg (41-51); VBG PH 7.21 pH Units (7.32-7.42); VBG PO2 101 mmHg (25-50)
[2022-01-16] MEDS ORDERED: Insulin Human Regular 10 UNIT in 0.9 % Sodium Chloride 10 ML IV ONE (01:19)
[2022-01-16] MEDS ORDERED: *HR* Dextrose 50 % in Water (Syg) 50 ML SYRINGE IVP ONE (01:19)
[2022-01-16] MEDS ORDERED: Furosemide 20 MG/2 ML VIAL IVP ONE (01:19)
[2022-01-16] MEDS ORDERED: Saliva Stimulant 44.3ml BOTTLE PO PRN (01:24)
[2022-01-16] MEDS ORDERED: Saline Nasal Spray 44 ML BOTTLE NS PRN (01:25)
[2022-01-16 01:27] LABS: Anisocytosis 1+ (Not Present); Hypochromasia Present (Not Present); Polychromasia 1+ (Not Present)
[2022-01-16 01:28] LABS: Platelet Estimate Normal (Normal)
[2022-01-16] MEDS: SODIUM ZIRCONIUM CYCLOSILICATE 5 GM POWD.PACK PO SCH ×2 (02:00→08:24)
[2022-01-16] MEDS: Acetaminophen 325 MG TABLET PO PRN (03:43)
[2022-01-16] MEDS: Ipratropium/Albuterol Neb 3 ML IH SCH ×6 (04:24→23:45)
[2022-01-16 05:46] LABS: Hematocrit 24.5 % (35.3-44.9); Hemoglobin 6.9 g/dL (11.5-15.4); Mean Corpuscular HGB Conc 28.2 g/dL (31.6-35.5); Mean Corpuscular Volume 85.1 fL (83.0-100.0); Mean Platelet Volume 12.9 fL (9.4-12.4); Platelet Count 148 K/mcL (140-400); Red Blood Count 2.88 M/mcL (3.82-4.97); Red Cell Distribution Width 19.7 % (11.5-14.5); White Blood Count 7.1 K/mcL (4.3-11.1)
[2022-01-16 06:04] LABS: Calcium 8.7 mg/dL (8.6-10.3); Magnesium 1.7 mg/dL (1.6-2.6); Phosphorous 4.8 mg/dL (2.7-4.5); Potassium 5.7 mEq/L (3.5-5.1)
[2022-01-16 06:08] LABS: % Iron Saturation 7 % (15-50); Iron 26 mcg/dL (50-170); Transferrin 277 mg/dL (203-362)
[2022-01-16 06:12] LABS: INR 1.7; Prothrombin Time 19.2 Seconds (9.4-12.1)
[2022-01-16 06:15] LABS: Activated Partial Thrombo Time 33.1 Seconds (26.0-36.0)
[2022-01-16 06:24] LABS: Ferritin 18 ng/mL (10-120)
[2022-01-16 06:37] LABS: Folate > 22.3 ng/mL (3.0-16.0); Vitamin B12 > 1500 pg/mL (250-1100)
[2022-01-16] MEDS: Albumin 25% 25gram/100mL 25 GM/100 ML IV.SOLN IVPB SCH ×2 (06:39→17:55)
[2022-01-16] MEDS: Budesonide/Formoterol 160/4.5 1 PUFF INH IH SCH ×2 (08:07→19:30)
[2022-01-16] MEDS: polyethylene glycoL 3350 17 GM POWD.PACK PO SCH (08:24)
[2022-01-16] MEDS: predniSONE 20 MG TABLET PO SCH (08:25)
[2022-01-16] MEDS: Isosorbide MONOnitrate (24 HR) 30 MG TAB.ER.24H PO SCH (08:25)
[2022-01-16] MEDS: levETIRAcetam 250 MG TABLET PO SCH ×2 (08:25→20:54)
[2022-01-16] MEDS: Renal Vitamin 1 CAP CAPSULE PO SCH (08:25)
[2022-01-16] MEDS: Metoprolol XL (24 HR) Succ 50 MG TAB.ER.24H PO SCH (08:25)
[2022-01-16] MEDS: Azithromycin 250 MG TABLET PO SCH (08:26)
[2022-01-16] MEDS: Furosemide 40 MG/4 ML VIAL IVP SCH ×2 (08:30→20:54)
[2022-01-16] MEDS: Chlorhexidine Rinse 15 ML MOUTHWASH MM SCH ×2 (08:30→20:53)
[2022-01-16] MEDS: Artificial Tears SOLN 15 ML BOTTLE BOTH EYES SCH ×4 (08:35→20:54)
[2022-01-16] MEDS: Fluticasone Propionate Nasal 50 MCG/SPRAY BOTTLE NS SCH (08:35)
[2022-01-16] MEDS: Insulin DETEMIR 100 UNIT/ML X5UNITS SUBQ SCH ×2 (08:37→21:00)
[2022-01-16] MEDS: Insulin LISPRO 300 UNITS/3 ML VIAL SUBQ SCH ×3 (08:37→16:31)
[2022-01-16] MEDS ORDERED: 0.9 % Sodium Chloride 250 ML ONE (10:33)
[2022-01-16 13:53] LABS: ABG Base Excess 1 mEq/L (-2 to 3); ABG HCO3 28 mEq/L (21-27); ABG Oxygen Saturation 99 % (95-98); ABG PCO2 57 mmHg (35-45); ABG PO2 158 mmHg (85-104); ABG TCO2 29 mEq/L (20-26); Blood Gas Modality BiLevel
[2022-01-16 16:03] LABS: Hemoglobin 7.3 g/dL (11.5-15.4)
[2022-01-16 16:05] LABS: Hematocrit 25.6 % (35.3-44.9)
[2022-01-16] MEDS: rOPINIRole 1 MG TABLET PO SCH (20:53)
[2022-01-17] MEDS: Ipratropium/Albuterol Neb 3 ML IH SCH ×5 (03:37→20:31)
[2022-01-17] MEDS: Albumin 25% 25gram/100mL 25 GM/100 ML IV.SOLN IVPB SCH ×2 (05:43→20:37)
[2022-01-17] MEDS: Budesonide/Formoterol 160/4.5 1 PUFF INH IH SCH ×2 (07:31→20:31)
[2022-01-17] MEDS: Azithromycin 250 MG TABLET PO SCH (09:50)
[2022-01-17] MEDS: Metoprolol XL (24 HR) Succ 50 MG TAB.ER.24H PO SCH (09:50)
[2022-01-17] MEDS: Aspirin Enteric Coated 81 MG Tablet PO SCH (09:50)
[2022-01-17] MEDS: Isosorbide MONOnitrate (24 HR) 30 MG TAB.ER.24H PO SCH (09:50)
[2022-01-17] MEDS: predniSONE 20 MG TABLET PO SCH (09:50)
[2022-01-17] MEDS: Multivit/Ca/Min/Fe/FA 1 TAB TABLET PO SCH (09:50)
[2022-01-17] MEDS: levETIRAcetam 250 MG TABLET PO SCH ×2 (09:50→20:37)
[2022-01-17] MEDS: Artificial Tears SOLN 15 ML BOTTLE BOTH EYES SCH ×4 (09:51→20:38)
[2022-01-17] MEDS: Renal Vitamin 1 CAP CAPSULE PO SCH (09:51)
[2022-01-17] MEDS: Fluticasone Propionate Nasal 50 MCG/SPRAY BOTTLE NS SCH (09:51)
[2022-01-17] MEDS: Apixaban 5 MG TABLET PO SCH ×2 (09:51→20:37)
[2022-01-17] MEDS: polyethylene glycoL 3350 17 GM POWD.PACK PO SCH (09:51)
[2022-01-17] MEDS: Chlorhexidine Rinse 15 ML MOUTHWASH MM SCH ×2 (09:51→20:37)
[2022-01-17] MEDS: Insulin DETEMIR 100 UNIT/ML X5UNITS SUBQ SCH ×2 (09:51→20:50)
[2022-01-17] MEDS: Insulin LISPRO 300 UNITS/3 ML VIAL SUBQ SCH ×3 (10:06→17:08)
[2022-01-17] MEDS: Furosemide 40 MG/4 ML VIAL IVP SCH ×2 (10:06→20:38)
[2022-01-17] MEDS: Simethicone 80 MG TAB.CHEW PO PRN (14:29)
[2022-01-17] MEDS: Acetaminophen 325 MG TABLET PO PRN (17:09)
[2022-01-17] MEDS: rOPINIRole 1 MG TABLET PO SCH (20:38)
[2022-01-18] MEDS: Ipratropium/Albuterol Neb 3 ML IH SCH ×7 (00:37→23:34)
[2022-01-18 01:30] LABS: Basophils % 0.1 %; Hemoglobin 7.1 g/dL (11.5-15.4)
[2022-01-18 01:32] LABS: Hematocrit 24.7 % (35.3-44.9); Immature Granulocytes % 0.4 % (0-4); Immature Platelets 11.3 % (1.1-6.1); Lymphocytes # 0.6 K/mcL (0.6-4.6); Lymphocytes % 7.9 %; Mean Corpuscular HGB Conc 28.7 g/dL (31.6-35.5); Mean Corpuscular Hemoglobin 24.7 pg (28.0-33.3); Mean Corpuscular Volume 85.8 fL (83.0-100.0); Mean Platelet Volume 12.9 fL (9.4-12.4); Monocytes # 0.5 K/mcL (0.0-1.3); Monocytes % 6.2 %; Neutrophils # 6.2 K/mcL (1.6-8.9); Nucleated Red Blood Cells 0.6 /100 WBC (0); Platelet Count 145 K/mcL (140-400); Red Blood Count 2.88 M/mcL (3.82-4.97); Red Cell Distribution Width 19.2 % (11.5-14.5); Segmented Neutrophils % 85.4 %; White Blood Count 7.2 K/mcL (4.3-11.1)
[2022-01-18 02:03] LABS: Anisocytosis 2+ (Not Present); Hypochromasia Present (Not Present); Platelet Estimate Normal (Normal)
[2022-01-18 02:04] LABS: Polychromasia 1+ (Not Present)
[2022-01-18 02:48] LABS: Calcium 8.6 mg/dL (8.6-10.3)
[2022-01-18] MEDS: Albumin 25% 25gram/100mL 25 GM/100 ML IV.SOLN IVPB SCH ×2 (06:37→17:41)
[2022-01-18] MEDS: Budesonide/Formoterol 160/4.5 1 PUFF INH IH SCH ×2 (07:21→20:10)
[2022-01-18] MEDS: predniSONE 20 MG TABLET PO SCH (09:08)
[2022-01-18] MEDS: Chlorhexidine Rinse 15 ML MOUTHWASH MM SCH ×2 (09:08→20:31)
[2022-01-18] MEDS: Azithromycin 250 MG TABLET PO SCH (09:09)
[2022-01-18] MEDS: Aspirin Enteric Coated 81 MG Tablet PO SCH (09:09)
[2022-01-18] MEDS: Multivit/Ca/Min/Fe/FA 1 TAB TABLET PO SCH (09:09)
[2022-01-18] MEDS: Metoprolol XL (24 HR) Succ 50 MG TAB.ER.24H PO SCH (09:10)
[2022-01-18] MEDS: Apixaban 5 MG TABLET PO SCH ×2 (09:10→20:31)
[2022-01-18] MEDS: Isosorbide MONOnitrate (24 HR) 30 MG TAB.ER.24H PO SCH (09:10)
[2022-01-18] MEDS: levETIRAcetam 250 MG TABLET PO SCH ×2 (09:10→20:31)
[2022-01-18] MEDS: Renal Vitamin 1 CAP CAPSULE PO SCH (09:10)
[2022-01-18] MEDS: Artificial Tears SOLN 15 ML BOTTLE BOTH EYES SCH ×4 (09:11→20:31)
[2022-01-18] MEDS: Fluticasone Propionate Nasal 50 MCG/SPRAY BOTTLE NS SCH (09:11)
[2022-01-18] MEDS: Insulin LISPRO 300 UNITS/3 ML VIAL SUBQ SCH ×3 (09:12→16:48)
[2022-01-18] MEDS: polyethylene glycoL 3350 17 GM POWD.PACK PO SCH (09:13)
[2022-01-18] MEDS: Insulin DETEMIR 100 UNIT/ML X5UNITS SUBQ SCH ×2 (09:21→20:32)
[2022-01-18] MEDS ORDERED: 0.9 % Sodium Chloride 250 ML IVC SCH (09:30)
[2022-01-18] MEDS: Acetaminophen 325 MG TABLET PO PRN (17:40)
[2022-01-18] MEDS: rOPINIRole 1 MG TABLET PO SCH (20:31)
[2022-01-19] MEDS: Ipratropium/Albuterol Neb 3 ML IH SCH ×6 (04:23→23:12)
[2022-01-19 05:37] LABS: Basophils % 0.1 %
[2022-01-19 05:39] LABS: Eosinophils % 0.1 %; Hematocrit 28.2 % (35.3-44.9); Hemoglobin 8.1 g/dL (11.5-15.4); Immature Granulocytes % 0.4 % (0-4); Lymphocytes # 0.8 K/mcL (0.6-4.6); Lymphocytes % 8.4 %; Mean Corpuscular HGB Conc 28.7 g/dL (31.6-35.5); Mean Corpuscular Hemoglobin 24.6 pg (28.0-33.3); Mean Corpuscular Volume 85.7 fL (83.0-100.0); Mean Platelet Volume 12.7 fL (9.4-12.4); Monocytes # 0.6 K/mcL (0.0-1.3); Monocytes % 6.9 %; Neutrophils # 7.6 K/mcL (1.6-8.9); Nucleated Red Blood Cells 0.3 /100 WBC (0); Platelet Count 147 K/mcL (140-400); Red Blood Count 3.29 M/mcL (3.82-4.97); Red Cell Distribution Width 19.2 % (11.5-14.5); Segmented Neutrophils % 84.1 %
[2022-01-19 06:01] LABS: Calcium 8.8 mg/dL (8.6-10.3); Potassium 4.7 mEq/L (3.5-5.1)
[2022-01-19 08:15] LABS: Anisocytosis 1+ (Not Present); Microcytosis Present (Not Present); Platelet Estimate Normal (Normal)
[2022-01-19 08:16] LABS: Hypochromasia Present (Not Present)
[2022-01-19] MEDS: Budesonide/Formoterol 160/4.5 1 PUFF INH IH SCH ×2 (08:44→19:57)
[2022-01-19] MEDS: Albumin 25% 25gram/100mL 25 GM/100 ML IV.SOLN IVPB SCH ×2 (09:56→21:01)
[2022-01-19] MEDS: Insulin LISPRO 300 UNITS/3 ML VIAL SUBQ SCH ×3 (10:00→17:24)
[2022-01-19] MEDS: Artificial Tears SOLN 15 ML BOTTLE BOTH EYES SCH ×4 (10:01→20:57)
[2022-01-19] MEDS: Aspirin Enteric Coated 81 MG Tablet PO SCH (10:05)
[2022-01-19] MEDS: Apixaban 5 MG TABLET PO SCH ×2 (10:06→20:56)
[2022-01-19] MEDS: Chlorhexidine Rinse 15 ML MOUTHWASH MM SCH ×2 (10:06→20:57)
[2022-01-19] MEDS: Metoprolol XL (24 HR) Succ 50 MG TAB.ER.24H PO SCH (10:07)
[2022-01-19] MEDS: Multivit/Ca/Min/Fe/FA 1 TAB TABLET PO SCH (10:07)
[2022-01-19] MEDS: Renal Vitamin 1 CAP CAPSULE PO SCH (10:08)
[2022-01-19] MEDS: predniSONE 20 MG TABLET PO SCH (10:08)
[2022-01-19] MEDS: polyethylene glycoL 3350 17 GM POWD.PACK PO SCH (10:08)
[2022-01-19] MEDS: levETIRAcetam 250 MG TABLET PO SCH ×2 (10:09→20:56)
[2022-01-19] MEDS: Fluticasone Propionate Nasal 50 MCG/SPRAY BOTTLE NS SCH (10:09)
[2022-01-19] MEDS: Isosorbide MONOnitrate (24 HR) 30 MG TAB.ER.24H PO SCH (10:09)
[2022-01-19] MEDS: Acetaminophen 325 MG TABLET PO PRN ×2 (10:10→20:56)
[2022-01-19] MEDS: Insulin DETEMIR 100 UNIT/ML X5UNITS SUBQ SCH ×2 (10:12→20:57)
[2022-01-19] MEDS: rOPINIRole 1 MG TABLET PO SCH (20:56)
[2022-01-19] MEDS: Melatonin 3 MG TABLET PO PRN (20:57)
[2022-01-20] MEDS: Ipratropium/Albuterol Neb 3 ML IH SCH ×5 (03:38→20:47)
[2022-01-20] MEDS: Albumin 25% 25gram/100mL 25 GM/100 ML IV.SOLN IVPB SCH ×2 (06:18→17:09)
[2022-01-20] MEDS: Budesonide/Formoterol 160/4.5 1 PUFF INH IH SCH ×2 (07:36→20:47)
[2022-01-20 07:48] LABS: Eosinophils % 0.1 %; Hemoglobin 8.2 g/dL (11.5-15.4); Platelet Count 141 K/mcL (140-400); Red Cell Distribution Width 19.4 % (11.5-14.5)
[2022-01-20 07:50] LABS: Basophils % 0.1 %; Hematocrit 28.7 % (35.3-44.9); Immature Granulocytes % 0.4 % (0-4); Lymphocytes # 0.9 K/mcL (0.6-4.6); Lymphocytes % 10.8 %; Mean Corpuscular HGB Conc 28.6 g/dL (31.6-35.5); Mean Corpuscular Hemoglobin 24.6 pg (28.0-33.3); Mean Corpuscular Volume 85.9 fL (83.0-100.0); Mean Platelet Volume 12.6 fL (9.4-12.4); Monocytes # 0.9 K/mcL (0.0-1.3); Monocytes % 10.7 %; Neutrophils # 6.6 K/mcL (1.6-8.9); Red Blood Count 3.34 M/mcL (3.82-4.97); Segmented Neutrophils % 77.9 %; White Blood Count 8.5 K/mcL (4.3-11.1)
[2022-01-20 08:04] LABS: Calcium 9.1 mg/dL (8.6-10.3)
[2022-01-20 08:45] LABS: Hypochromasia Present (Not Present); Platelet Estimate Normal (Normal)
[2022-01-20 08:46] LABS: Anisocytosis 1+ (Not Present); Polychromasia 1+ (Not Present)
[2022-01-20 08:48] LABS: Poikilocytosis 1+ (Not Present)
[2022-01-20] MEDS: Multivit/Ca/Min/Fe/FA 1 TAB TABLET PO SCH (08:49)
[2022-01-20] MEDS: polyethylene glycoL 3350 17 GM POWD.PACK PO SCH (08:49)
[2022-01-20] MEDS: Isosorbide MONOnitrate (24 HR) 30 MG TAB.ER.24H PO SCH (08:49)
[2022-01-20] MEDS: Aspirin Enteric Coated 81 MG Tablet PO SCH (08:49)
[2022-01-20] MEDS: Metoprolol XL (24 HR) Succ 50 MG TAB.ER.24H PO SCH (08:49)
[2022-01-20] MEDS: predniSONE 20 MG TABLET PO SCH (08:49)
[2022-01-20] MEDS: Insulin LISPRO 300 UNITS/3 ML VIAL SUBQ SCH ×3 (08:50→17:10)
[2022-01-20] MEDS: Renal Vitamin 1 CAP CAPSULE PO SCH (08:50)
[2022-01-20] MEDS: levETIRAcetam 250 MG TABLET PO SCH ×2 (08:50→20:03)
[2022-01-20] MEDS: Insulin DETEMIR 100 UNIT/ML X5UNITS SUBQ SCH ×2 (08:50→20:05)
[2022-01-20] MEDS: Apixaban 5 MG TABLET PO SCH ×2 (08:50→20:04)
[2022-01-20] MEDS: Artificial Tears SOLN 15 ML BOTTLE BOTH EYES SCH ×4 (08:51→20:04)
[2022-01-20] MEDS: Fluticasone Propionate Nasal 50 MCG/SPRAY BOTTLE NS SCH (08:51)
[2022-01-20] MEDS: Chlorhexidine Rinse 15 ML MOUTHWASH MM SCH ×2 (08:51→20:04)
[2022-01-20] MEDS: *HR* Metoprolol 5 MG/5 ML VIAL IVP PRN ×2 (11:29→18:22)
[2022-01-20] MEDS: Furosemide 40 MG/4 ML VIAL IVP SCH ×2 (11:31→20:05)
[2022-01-20] MEDS ORDERED: Metoprolol XL (24 HR) Succ 25 MG TAB.ER.24H PO ONE (18:59)
[2022-01-20] MEDS ORDERED: Furosemide 40 MG/4 ML VIAL IVP ONE (18:59)
[2022-01-20] MEDS ORDERED: *HR* Metoprolol 5 MG/5 ML VIAL IVP ONE (19:45)
[2022-01-20] MEDS: rOPINIRole 1 MG TABLET PO SCH (20:03)
[2022-01-20] MEDS ORDERED: Levalbuterol Neb 1.25 MG/3 ML IH SCH (22:00)
[2022-01-20] MEDS: Ipratropium 1 PUFF INHALER IH SCH (23:11)
[2022-01-20] MEDS ORDERED: Amiodarone Premix 360 MG/200 ML BAG IVC ONE (23:55)
[2022-01-20] MEDS ORDERED: Amiodarone Premix 150 MG/100 ML BAG IVPB ONE (23:55)
[2022-01-21] MEDS: Acetaminophen 325 MG TABLET PO PRN (00:21)
[2022-01-21] MEDS: Melatonin 3 MG TABLET PO PRN (00:22)
[2022-01-21] MEDS: Ondansetron 4 MG/2 ML VIAL IVP PRN (00:43)
[2022-01-21] MEDS: Levalbuterol 1 PUFF INHALER IH SCH ×4 (04:44→22:05)
[2022-01-21] MEDS: Ipratropium 1 PUFF INHALER IH SCH ×4 (04:45→22:04)
[2022-01-21] MEDS: Amiodarone Premix 360 MG/200 ML BAG IVC SCH ×2 (05:14→17:05)
[2022-01-21] MEDS: Insulin LISPRO 300 UNITS/3 ML VIAL SUBQ SCH ×3 (07:30→16:30)
[2022-01-21] MEDS: Budesonide/Formoterol 160/4.5 1 PUFF INH IH SCH ×2 (07:47→22:05)
[2022-01-21 08:25] LABS: Eosinophils % 0.1 %; Nucleated Red Blood Cells 0.4 /100 WBC (0)
[2022-01-21 08:28] LABS: Basophils % 0.2 %; Hematocrit 33.2 % (35.3-44.9); Hemoglobin 9.3 g/dL (11.5-15.4); Immature Granulocytes % 0.4 % (0-4); Immature Platelets 14.9 % (1.1-6.1); Lymphocytes # 1.4 K/mcL (0.6-4.6); Lymphocytes % 11.2 %; Mean Corpuscular Hemoglobin 24.2 pg (28.0-33.3); Mean Corpuscular Volume 86.5 fL (83.0-100.0); Mean Platelet Volume 13.5 fL (9.4-12.4); Monocytes # 1.4 K/mcL (0.0-1.3); Monocytes % 11.5 %; Platelet Count 197 K/mcL (140-400); Red Blood Count 3.84 M/mcL (3.82-4.97); Red Cell Distribution Width 19.7 % (11.5-14.5); Segmented Neutrophils % 76.6 %; White Blood Count 12.1 K/mcL (4.3-11.1)
[2022-01-21 08:36] LABS: Neutrophils # 9.3 K/mcL (1.6-8.9)
[2022-01-21] MEDS: Furosemide 40 MG/4 ML VIAL IVP SCH (09:00)
[2022-01-21 09:02] LABS: Hypochromasia Present (Not Present); Platelet Estimate Normal (Normal); Polychromasia 1+ (Not Present)
[2022-01-21 09:03] LABS: Anisocytosis 1+ (Not Present); Poikilocytosis 1+ (Not Present)
[2022-01-21 09:13] LABS: Magnesium 1.9 mg/dL (1.6-2.6); Potassium 5.6 mEq/L (3.5-5.1)
[2022-01-21] MEDS: Chlorhexidine Rinse 15 ML MOUTHWASH MM SCH ×2 (12:06→23:09)
[2022-01-21] MEDS: Artificial Tears SOLN 15 ML BOTTLE BOTH EYES SCH ×5 (12:06→23:10)
[2022-01-21] MEDS: levETIRAcetam 250 MG TABLET PO SCH ×2 (12:07→23:03)
[2022-01-21] MEDS: Renal Vitamin 1 CAP CAPSULE PO SCH (12:07)
[2022-01-21] MEDS: polyethylene glycoL 3350 17 GM POWD.PACK PO SCH (12:07)
[2022-01-21] MEDS: Albumin 25% 25gram/100mL 25 GM/100 ML IV.SOLN IVPB SCH (12:08)
[2022-01-21] MEDS: Isosorbide MONOnitrate (24 HR) 30 MG TAB.ER.24H PO SCH (12:08)
[2022-01-21] MEDS: Metoprolol XL (24 HR) Succ 50 MG TAB.ER.24H PO SCH (12:08)
[2022-01-21] MEDS: Aspirin Enteric Coated 81 MG Tablet PO SCH (12:08)
[2022-01-21] MEDS: Apixaban 5 MG TABLET PO SCH ×2 (12:08→23:03)
[2022-01-21] MEDS: Multivit/Ca/Min/Fe/FA 1 TAB TABLET PO SCH (12:08)
[2022-01-21] MEDS: Insulin DETEMIR 100 UNIT/ML X5UNITS SUBQ SCH ×2 (12:09→23:07)
[2022-01-21] MEDS: Fluticasone Propionate Nasal 50 MCG/SPRAY BOTTLE NS SCH (12:10)
[2022-01-21] MEDS ORDERED: Furosemide 40 MG/4 ML VIAL IVP ONE (13:50)
[2022-01-21] MEDS: predniSONE 20 MG TABLET PO SCH (14:42)
[2022-01-21 15:05] LABS: Calcium 8.9 mg/dL (8.6-10.3); Potassium 5.1 mEq/L (3.5-5.1)
[2022-01-21 15:31] LABS: Bacteria,Urine Moderate per hpf (None-Few); Hyaline Casts,Urine Few per lpf (None Seen); Mucus,Urine Few per lpf (None-Few); Squamous Epithelial Cell,Urine Few per hpf (None-Few); WBC,Urine TNTC per hpf (0-3)
[2022-01-21 16:22] LABS: Bilirubin,Urine Negative (Negative); Clarity,Urine Ex.Turbid (Clear); Color,Urine Yellow (Yellow); Glucose,Urine (UA) Normal (Normal)
[2022-01-21 16:23] LABS: Blood,Urine Small (Negative); Ketones,Urine Negative (Negative); Leukocyte Esterase,Urine Large (Negative); Nitrite,Urine Negative (Negative); Protein,Urine 200 mg/dL (Neg-Trace); Specific Gravity,Urine 1.015 (1.010-1.025); Urobilinogen,Urine Normal (Normal)
[2022-01-21 20:12] LABS: INR 2.1
[2022-01-21 20:27] LABS: Albumin 4.4 g/dL (3.5-5.7); Albumin/Globulin Ratio 1.9 (1.1-2.2); Bilirubin,Direct 0.2 mg/dL (0.0-0.2); Bilirubin,Indirect 0.4 mg/dL (0.0-1.0); Bilirubin,Total 0.6 mg/dL (0.3-1.0); Globulin 2.3 g/dL (2.4-3.5); Total Protein 6.7 g/dL (6.4-8.9)
[2022-01-21 20:40] LABS: Thyroid Stimulating Hormone 4.738 mcIU/mL (0.340-5.600)
[2022-01-21] MEDS: rOPINIRole 1 MG TABLET PO SCH (23:02)
[2022-01-22] MEDS: Ipratropium 1 PUFF INHALER IH SCH ×4 (03:55→20:49)
[2022-01-22] MEDS: Levalbuterol 1 PUFF INHALER IH SCH ×4 (03:55→20:50)
[2022-01-22] MEDS: Amiodarone Premix 360 MG/200 ML BAG IVC SCH (05:15)
[2022-01-22 06:03] LABS: Basophils % 0.2 %; Eosinophils # 0.2 K/mcL (0.0-0.6); Eosinophils % 1.4 %; Hematocrit 35.2 % (35.3-44.9); Hemoglobin 9.7 g/dL (11.5-15.4); Immature Granulocytes % 0.5 % (0-4); Lymphocytes # 1.2 K/mcL (0.6-4.6); Lymphocytes % 10.3 %; Mean Corpuscular HGB Conc 27.6 g/dL (31.6-35.5); Mean Corpuscular Hemoglobin 24.7 pg (28.0-33.3); Mean Corpuscular Volume 89.8 fL (83.0-100.0); Mean Platelet Volume 13.2 fL (9.4-12.4); Monocytes # 1.2 K/mcL (0.0-1.3); Monocytes % 9.8 %; Nucleated Red Blood Cells 0.4 /100 WBC (0); Platelet Count 221 K/mcL (140-400); Red Blood Count 3.92 M/mcL (3.82-4.97); Red Cell Distribution Width 19.9 % (11.5-14.5); Segmented Neutrophils % 77.8 %
[2022-01-22 06:30] LABS: Neutrophils # 9.3 K/mcL (1.6-8.9)
[2022-01-22 06:31] LABS: Hypochromasia Present (Not Present); Microcytosis Present (Not Present); Platelet Estimate Normal (Normal)
[2022-01-22 06:53] LABS: Calcium 9.2 mg/dL (8.6-10.3); Potassium 5.1 mEq/L (3.5-5.1)
[2022-01-22] MEDS: Budesonide/Formoterol 160/4.5 1 PUFF INH IH SCH ×2 (11:16→20:50)
[2022-01-22] MEDS: Insulin DETEMIR 100 UNIT/ML X5UNITS SUBQ SCH ×2 (11:30→20:42)
[2022-01-22] MEDS ORDERED: Albumin 25% 25gram/100mL 25 GM/100 ML IV.SOLN IVPB ONE (15:33)
[2022-01-22] MEDS ORDERED: Furosemide 40 MG/4 ML VIAL IVP ONE (16:00)
[2022-01-22] MEDS: Chlorhexidine Rinse 15 ML MOUTHWASH MM SCH ×2 (16:10→20:41)
[2022-01-22] MEDS: levETIRAcetam 250 MG TABLET PO SCH ×2 (16:10→20:42)
[2022-01-22] MEDS: Apixaban 5 MG TABLET PO SCH ×2 (16:11→20:42)
[2022-01-22] MEDS: polyethylene glycoL 3350 17 GM POWD.PACK PO SCH (16:11)
[2022-01-22] MEDS: predniSONE 20 MG TABLET PO SCH (16:11)
[2022-01-22] MEDS: Multivit/Ca/Min/Fe/FA 1 TAB TABLET PO SCH (16:12)
[2022-01-22] MEDS: Aspirin Enteric Coated 81 MG Tablet PO SCH (16:12)
[2022-01-22] MEDS: Isosorbide MONOnitrate (24 HR) 30 MG TAB.ER.24H PO SCH (16:12)
[2022-01-22] MEDS: Renal Vitamin 1 CAP CAPSULE PO SCH (16:13)
[2022-01-22] MEDS: Insulin LISPRO 300 UNITS/3 ML VIAL SUBQ SCH ×3 (16:13→17:24)
[2022-01-22] MEDS: Artificial Tears SOLN 15 ML BOTTLE BOTH EYES SCH ×4 (16:13→20:41)
[2022-01-22] MEDS: Fluticasone Propionate Nasal 50 MCG/SPRAY BOTTLE NS SCH (16:15)
[2022-01-22] MEDS ORDERED: Perflutren Lipid Microsphere 1.3 ML in 0.9 % Sodium Chloride 8.7 ML IVP PRN (18:59)
[2022-01-22] MEDS: Cefepime HCl 2,000 MG in 0.9 % Sodium Chloride 10 ML IVP SCH (20:42)
[2022-01-22] MEDS: rOPINIRole 1 MG TABLET PO SCH (20:42)
[2022-01-22 20:51] LABS: CTX-M ESBL Gene Not Detected (Not Detect); IMP Carbapenem-Resist Gene Not Detected (Not Detect); NDM Carbapenem-Resist Gene Not Detected (Not Detect); OXA-48-like Carbap-Resist Gene Not Detected (Not Detect); VIM Carbapenem-Resist Gene Not Detected (Not Detect); blaKPC Carbapenem-Resist Gene Not Detected (Not Detect)
[2022-01-22 20:52] LABS: A.calcoaceticus-baumannii cplx Not Detected (Not Detect); Bacteroides fragilis by PCR Not Detected (Not Detect); Candida albicans by PCR Not Detected (Not Detect); Candida auris by PCR Not Detected (Not Detect); Candida glabrata by PCR Not Detected (Not Detect); Candida krusei by PCR Not Detected (Not Detect); Candida parapsilosis by PCR Not Detected (Not Detect); Candida tropicalis by PCR Not Detected (Not Detect); Crypto. neoformans/gattii PCR Not Detected (Not Detect); Enterobacter cloacae Cmplx PCR Not Detected (Not Detect); Enterococcus faecalis by PCR Not Detected (Not Detect); Enterococcus faecium by PCR Not Detected (Not Detect); Escherichia coli by PCR Not Detected (Not Detect); Klebs. pneumoniae group by PCR DETECTED (Not Detect); Klebsiella aerogenes by PCR Not Detected (Not Detect); Klebsiella oxytoca by PCR Not Detected (Not Detect); Proteus by PCR Not Detected (Not Detect); Pseudomonas aeruginosa by PCR Not Detected (Not Detect); Salmonella species by PCR Not Detected (Not Detect); Serratia marcescens by PCR Not Detected (Not Detect); Staph epidermidis by PCR Not Detected (Not Detect); Staph lugdunensis by PCR Not Detected (Not Detect); Staphylococcus aureus by PCR Not Detected (Not Detect); Staphylococcus by PCR Not Detected (Not Detect); Stenotrophomonas maltophilia Not Detected (Not Detect); Streptococcus agalactiae(B)PCR Not Detected (Not Detect); Streptococcus by PCR Not Detected (Not Detect); Streptococcus pneumoniae PCR Not Detected (Not Detect); Streptococcus pyogenes (A) PCR Not Detected (Not Detect); mcr-1 Colistin-Resist Gene Not Detected (Not Detect)
[2022-01-23] MEDS: *HR* Metoprolol 5 MG/5 ML VIAL IVP PRN (00:33)
[2022-01-23] MEDS: Levalbuterol 1 PUFF INHALER IH SCH ×4 (03:32→21:07)
[2022-01-23] MEDS: Ipratropium 1 PUFF INHALER IH SCH ×4 (03:32→21:08)
[2022-01-23 04:28] LABS: Basophils % 0.1 %
[2022-01-23 04:30] LABS: Hematocrit 32.1 % (35.3-44.9); Hemoglobin 8.9 g/dL (11.5-15.4); Immature Granulocytes % 0.2 % (0-4); Lymphocytes # 0.5 K/mcL (0.6-4.6); Lymphocytes % 5.4 %; Mean Corpuscular HGB Conc 27.7 g/dL (31.6-35.5); Mean Corpuscular Hemoglobin 25.1 pg (28.0-33.3); Mean Corpuscular Volume 90.7 fL (83.0-100.0); Mean Platelet Volume 13.3 fL (9.4-12.4); Monocytes # 0.5 K/mcL (0.0-1.3); Monocytes % 4.5 %; Nucleated Red Blood Cells 0.5 /100 WBC (0); Platelet Count 196 K/mcL (140-400); Red Blood Count 3.54 M/mcL (3.82-4.97); Red Cell Distribution Width 19.6 % (11.5-14.5); Segmented Neutrophils % 89.8 %
[2022-01-23 04:42] LABS: Potassium 5.3 mEq/L (3.5-5.1)
[2022-01-23 05:01] LABS: Anisocytosis 1+ (Not Present); Hypochromasia Present (Not Present); Platelet Estimate Normal (Normal); Poikilocytosis 1+ (Not Present); Stomatocytes 1+ (Not Present)
[2022-01-23] MEDS: Cefepime HCl 2,000 MG in 0.9 % Sodium Chloride 10 ML IVP SCH ×2 (07:18→17:24)
[2022-01-23] MEDS: Amiodarone Premix 360 MG/200 ML BAG IVC SCH ×2 (07:28→18:52)
[2022-01-23] MEDS: levETIRAcetam 250 MG TABLET PO SCH ×2 (07:30→21:20)
[2022-01-23] MEDS: Aspirin Enteric Coated 81 MG Tablet PO SCH (07:31)
[2022-01-23] MEDS: predniSONE 20 MG TABLET PO SCH (07:35)
[2022-01-23] MEDS: Artificial Tears SOLN 15 ML BOTTLE BOTH EYES SCH ×4 (07:36→17:37)
[2022-01-23] MEDS: Apixaban 5 MG TABLET PO SCH ×2 (07:36→21:19)
[2022-01-23] MEDS: Chlorhexidine Rinse 15 ML MOUTHWASH MM SCH ×2 (07:36→21:22)
[2022-01-23] MEDS: Insulin LISPRO 300 UNITS/3 ML VIAL SUBQ SCH ×3 (07:55→17:23)
[2022-01-23] MEDS: Insulin DETEMIR 100 UNIT/ML X5UNITS SUBQ SCH ×2 (07:56→21:35)
[2022-01-23] MEDS: Fluticasone Propionate Nasal 50 MCG/SPRAY BOTTLE NS SCH (08:06)
[2022-01-23] MEDS: Budesonide/Formoterol 160/4.5 1 PUFF INH IH SCH ×2 (08:17→21:08)
[2022-01-23] MEDS: polyethylene glycoL 3350 17 GM POWD.PACK PO SCH (09:00)
[2022-01-23] MEDS: Isosorbide MONOnitrate (24 HR) 30 MG TAB.ER.24H PO SCH (13:03)
[2022-01-23] MEDS: Renal Vitamin 1 CAP CAPSULE PO SCH (13:04)
[2022-01-23] MEDS: Furosemide 240 MG in 0.9 % Sodium Chloride 96 ML IVC SCH (14:29)
[2022-01-23 15:13] LABS: Bacteria,Urine Few per hpf (None-Few); Bilirubin,Urine Negative (Negative); Blood,Urine Moderate (Negative); Clarity,Urine Clear (Clear); Color,Urine Yellow (Yellow); Glucose,Urine (UA) 150 mg/dL (Normal); Ketones,Urine Negative (Negative); Leukocyte Esterase,Urine Large (Negative); Nitrite,Urine Negative (Negative); PH,Urine 5.5 pH Units (5.0-8.0); Protein,Urine 100 mg/dL (Neg-Trace); RBC,Urine 30-50 per hpf (0-3); Specific Gravity,Urine 1.019 (1.010-1.025); Squamous Epithelial Cell,Urine Few per hpf (None-Few); Transitional Epi Cells,Urine Few per hpf (None-Few); Urobilinogen,Urine Normal (Normal); WBC,Urine 15-30 per hpf (0-3)
[2022-01-23 15:21] LABS: Sodium, Urine 13.5 mEq/L
[2022-01-23 16:05] LABS: Uric Acid 8.8 mg/dL (2.3-7.6)
[2022-01-23] MEDS: rOPINIRole 1 MG TABLET PO SCH (21:20)
[2022-01-24] MEDS: Artificial Tears SOLN 15 ML BOTTLE BOTH EYES SCH ×6 (00:13→19:41)
[2022-01-24] MEDS: Levalbuterol 1 PUFF INHALER IH SCH ×4 (04:12→20:24)
[2022-01-24] MEDS: Ipratropium 1 PUFF INHALER IH SCH ×4 (04:12→20:24)
[2022-01-24 05:16] LABS: Immature Granulocytes % 0.4 % (0-4); Mean Platelet Volume 12.6 fL (9.4-12.4); Monocytes % 7.9 %
[2022-01-24 05:18] LABS: Basophils % 0.2 %; Eosinophils % 0.4 %; Hematocrit 32.5 % (35.3-44.9); Hemoglobin 8.9 g/dL (11.5-15.4); Lymphocytes # 0.9 K/mcL (0.6-4.6); Lymphocytes % 8.3 %; Mean Corpuscular HGB Conc 27.4 g/dL (31.6-35.5); Mean Corpuscular Hemoglobin 24.3 pg (28.0-33.3); Mean Corpuscular Volume 88.8 fL (83.0-100.0); Monocytes # 0.8 K/mcL (0.0-1.3); Nucleated Red Blood Cells 0.3 /100 WBC (0); Platelet Count 184 K/mcL (140-400); Red Blood Count 3.66 M/mcL (3.82-4.97); Red Cell Distribution Width 19.9 % (11.5-14.5); Segmented Neutrophils % 82.8 %; White Blood Count 10.3 K/mcL (4.3-11.1)
[2022-01-24] MEDS: Cefepime HCl 2,000 MG in 0.9 % Sodium Chloride 10 ML IVP SCH ×2 (05:23→17:11)
[2022-01-24 05:27] LABS: Neutrophils # 8.5 K/mcL (1.6-8.9)
[2022-01-24 05:32] LABS: Calcium 9.2 mg/dL (8.6-10.3); Potassium 4.7 mEq/L (3.5-5.1)
[2022-01-24 05:59] LABS: Hypochromasia Present (Not Present); Platelet Estimate Normal (Normal)
[2022-01-24] MEDS: Amiodarone Premix 360 MG/200 ML BAG IVC SCH (07:11)
[2022-01-24] MEDS: Budesonide/Formoterol 160/4.5 1 PUFF INH IH SCH ×2 (07:36→20:23)
[2022-01-24] MEDS: Insulin LISPRO 300 UNITS/3 ML VIAL SUBQ SCH ×3 (08:17→17:12)
[2022-01-24] MEDS: predniSONE 20 MG TABLET PO SCH (08:18)
[2022-01-24] MEDS: levETIRAcetam 250 MG TABLET PO SCH ×2 (08:18→19:40)
[2022-01-24] MEDS: Multivit/Ca/Min/Fe/FA 1 TAB TABLET PO SCH (08:18)
[2022-01-24] MEDS: Insulin DETEMIR 100 UNIT/ML X5UNITS SUBQ SCH ×2 (08:18→19:53)
[2022-01-24] MEDS: Apixaban 5 MG TABLET PO SCH ×2 (08:18→19:40)
[2022-01-24] MEDS: Isosorbide MONOnitrate (24 HR) 30 MG TAB.ER.24H PO SCH (08:18)
[2022-01-24] MEDS: Aspirin Enteric Coated 81 MG Tablet PO SCH (08:19)
[2022-01-24] MEDS: Chlorhexidine Rinse 15 ML MOUTHWASH MM SCH ×2 (08:19→19:39)
[2022-01-24] MEDS: polyethylene glycoL 3350 17 GM POWD.PACK PO SCH (08:19)
[2022-01-24] MEDS: Fluticasone Propionate Nasal 50 MCG/SPRAY BOTTLE NS SCH (08:19)
[2022-01-24] MEDS: Renal Vitamin 1 CAP CAPSULE PO SCH (10:39)
[2022-01-24] MEDS: Albumin 25% 25gram/100mL 25 GM/100 ML IV.SOLN IVPB SCH ×2 (15:16→23:38)
[2022-01-24] MEDS: rOPINIRole 1 MG TABLET PO SCH (19:40)
[2022-01-25 02:51] LABS: Basophils % 0.1 %; Immature Granulocytes % 0.5 % (0-4); Nucleated Red Blood Cells 0.3 /100 WBC (0)
[2022-01-25 02:53] LABS: Eosinophils % 0.2 %; Hematocrit 30.6 % (35.3-44.9); Hemoglobin 8.5 g/dL (11.5-15.4); Lymphocytes # 0.9 K/mcL (0.6-4.6); Mean Corpuscular HGB Conc 27.8 g/dL (31.6-35.5); Mean Corpuscular Hemoglobin 24.6 pg (28.0-33.3); Mean Corpuscular Volume 88.4 fL (83.0-100.0); Mean Platelet Volume 12.8 fL (9.4-12.4); Monocytes # 0.9 K/mcL (0.0-1.3); Monocytes % 7.9 %; Neutrophils # 9.2 K/mcL (1.6-8.9); Platelet Count 197 K/mcL (140-400); Red Blood Count 3.46 M/mcL (3.82-4.97); Red Cell Distribution Width 19.9 % (11.5-14.5); Segmented Neutrophils % 83.3 %
[2022-01-25 03:02] LABS: Calcium 9.2 mg/dL (8.6-10.3); Potassium 4.5 mEq/L (3.5-5.1)
[2022-01-25 03:36] LABS: Anisocytosis 1+ (Not Present); Hypochromasia Present (Not Present)
[2022-01-25 03:37] LABS: Platelet Estimate Normal (Normal)
[2022-01-25] MEDS: Ipratropium 1 PUFF INHALER IH SCH ×4 (03:58→20:09)
[2022-01-25] MEDS: Levalbuterol 1 PUFF INHALER IH SCH ×4 (03:59→20:08)
[2022-01-25] MEDS: Cefepime HCl 2,000 MG in 0.9 % Sodium Chloride 10 ML IVP SCH ×2 (05:50→18:25)
[2022-01-25] MEDS: Furosemide 240 MG in 0.9 % Sodium Chloride 96 ML IVC SCH ×2 (05:57→18:33)
[2022-01-25] MEDS: Chlorhexidine Rinse 15 ML MOUTHWASH MM SCH ×2 (09:40→22:41)
[2022-01-25] MEDS: levETIRAcetam 250 MG TABLET PO SCH ×2 (09:40→22:40)
[2022-01-25] MEDS: Artificial Tears SOLN 15 ML BOTTLE BOTH EYES SCH ×4 (09:40→22:41)
[2022-01-25] MEDS: predniSONE 10 MG TABLET PO SCH (09:40)
[2022-01-25] MEDS: Aspirin Enteric Coated 81 MG Tablet PO SCH (09:41)
[2022-01-25] MEDS: Apixaban 5 MG TABLET PO SCH ×2 (09:41→22:40)
[2022-01-25] MEDS: Isosorbide MONOnitrate (24 HR) 30 MG TAB.ER.24H PO SCH (09:42)
[2022-01-25] MEDS: Multivit/Ca/Min/Fe/FA 1 TAB TABLET PO SCH (09:42)
[2022-01-25] MEDS: Fluticasone Propionate Nasal 50 MCG/SPRAY BOTTLE NS SCH (09:42)
[2022-01-25] MEDS: Renal Vitamin 1 CAP CAPSULE PO SCH (09:42)
[2022-01-25] MEDS: polyethylene glycoL 3350 17 GM POWD.PACK PO SCH (09:47)
[2022-01-25] MEDS: Albumin 25% 25gram/100mL 25 GM/100 ML IV.SOLN IVPB SCH ×2 (09:56→18:27)
[2022-01-25] MEDS: Insulin LISPRO 300 UNITS/3 ML VIAL SUBQ SCH ×4 (09:59→22:41)
[2022-01-25] MEDS: Insulin DETEMIR 100 UNIT/ML X5UNITS SUBQ SCH ×2 (10:00→22:41)
[2022-01-25] MEDS: Budesonide/Formoterol 160/4.5 1 PUFF INH IH SCH ×2 (10:35→20:09)
[2022-01-25] MEDS: Acetaminophen 325 MG TABLET PO PRN (14:08)
[2022-01-25] MEDS ORDERED: Isovue-370 500 ML BOTTLE IVP ONE (15:18)
[2022-01-25] MEDS: *HR* Metoprolol 5 MG/5 ML VIAL IVP PRN (19:47)
[2022-01-25] MEDS: Metoprolol XL (24 HR) Succ 50 MG TAB.ER.24H PO SCH (21:13)
[2022-01-25] MEDS: Simethicone 80 MG TAB.CHEW PO PRN (22:40)
[2022-01-25] MEDS: rOPINIRole 1 MG TABLET PO SCH (22:40)
[2022-01-25] MEDS: Melatonin 3 MG TABLET PO PRN (22:40)
[2022-01-26] MEDS: Albumin 25% 25gram/100mL 25 GM/100 ML IV.SOLN IVPB SCH ×3 (00:41→17:03)
[2022-01-26] MEDS: Ipratropium 1 PUFF INHALER IH SCH ×4 (03:53→22:30)
[2022-01-26] MEDS: Levalbuterol 1 PUFF INHALER IH SCH ×4 (03:53→22:29)
[2022-01-26 04:41] LABS: Lymphocytes % 9.3 %; Nucleated Red Blood Cells 0.2 /100 WBC (0)
[2022-01-26 04:42] LABS: Basophils % 0.3 %; Eosinophils # 0.1 K/mcL (0.0-0.6); Eosinophils % 0.5 %; Hematocrit 31.2 % (35.3-44.9); Hemoglobin 8.3 g/dL (11.5-15.4); Immature Granulocytes % 0.5 % (0-4); Mean Corpuscular HGB Conc 26.6 g/dL (31.6-35.5); Mean Corpuscular Hemoglobin 24.1 pg (28.0-33.3); Mean Corpuscular Volume 90.7 fL (83.0-100.0); Mean Platelet Volume 13.2 fL (9.4-12.4); Monocytes % 9.3 %; Neutrophils # 8.7 K/mcL (1.6-8.9); Platelet Count 195 K/mcL (140-400); Red Blood Count 3.44 M/mcL (3.82-4.97); Segmented Neutrophils % 80.1 %; White Blood Count 10.9 K/mcL (4.3-11.1)
[2022-01-26 04:47] LABS: Anisocytosis 1+ (Not Present); Hypochromasia Present (Not Present)
[2022-01-26 04:48] LABS: Platelet Estimate Normal (Normal)
[2022-01-26 05:39] LABS: Calcium 9.5 mg/dL (8.6-10.3); Potassium 4.4 mEq/L (3.5-5.1)
[2022-01-26] MEDS: Cefepime HCl 2,000 MG in 0.9 % Sodium Chloride 10 ML IVP SCH (05:51)
[2022-01-26] MEDS: Budesonide/Formoterol 160/4.5 1 PUFF INH IH SCH ×2 (08:06→22:30)
[2022-01-26] MEDS: Metoprolol XL (24 HR) Succ 50 MG TAB.ER.24H PO SCH (09:13)
[2022-01-26] MEDS: predniSONE 10 MG TABLET PO SCH (09:13)
[2022-01-26] MEDS: Apixaban 5 MG TABLET PO SCH ×2 (09:13→21:07)
[2022-01-26] MEDS: Renal Vitamin 1 CAP CAPSULE PO SCH (09:13)
[2022-01-26] MEDS: Isosorbide MONOnitrate (24 HR) 30 MG TAB.ER.24H PO SCH (09:13)
[2022-01-26] MEDS: Multivit/Ca/Min/Fe/FA 1 TAB TABLET PO SCH (09:13)
[2022-01-26] MEDS: Artificial Tears SOLN 15 ML BOTTLE BOTH EYES SCH ×4 (09:14→20:24)
[2022-01-26] MEDS: polyethylene glycoL 3350 17 GM POWD.PACK PO SCH (09:14)
[2022-01-26] MEDS: Chlorhexidine Rinse 15 ML MOUTHWASH MM SCH ×2 (09:26→21:09)
[2022-01-26] MEDS: levETIRAcetam 250 MG TABLET PO SCH ×2 (09:47→21:07)
[2022-01-26] MEDS: Insulin LISPRO 300 UNITS/3 ML VIAL SUBQ SCH ×4 (09:49→21:10)
[2022-01-26] MEDS: Insulin DETEMIR 100 UNIT/ML X5UNITS SUBQ SCH ×2 (09:49→21:21)
[2022-01-26] MEDS: Fluticasone Propionate Nasal 50 MCG/SPRAY BOTTLE NS SCH (13:28)
[2022-01-26] MEDS: *HR* Metoprolol 5 MG/5 ML VIAL IVP PRN ×2 (14:29→21:12)
[2022-01-26] MEDS: *HR* OxyCODONE Immed Rel 5 MG TABLET PO PRN ×2 (14:29→21:13)
[2022-01-26] MEDS ORDERED: Furosemide 240 MG in 0.9 % Sodium Chloride 96 ML IVC SCH (14:32)
[2022-01-26] MEDS ORDERED: Metoprolol XL (24 HR) Succ 50 MG TAB.ER.24H PO ONE ×2 (16:19→16:24)
[2022-01-26] MEDS ORDERED: Nitroglycerin 1 INCH/GM PACKET TP ONE (16:21)
[2022-01-26] MEDS ORDERED: Metoprolol XL (24 HR) Succ 25 MG TAB.ER.24H PO ONE (16:30)
[2022-01-26] MEDS: Nitroglycerin 0.4 MG TAB.SUBL SL PRN ×2 (16:30→17:03)
[2022-01-26] MEDS: Cefepime HCl 1,000 MG in 0.9 % Sodium Chloride 10 ML IVPB SCH (17:05)
[2022-01-26] MEDS: Nitroglycerin 1 INCH/GM PACKET TP SCH (18:43)
[2022-01-26] MEDS ORDERED: Metoprolol XL (24 HR) Succ 50 MG TAB.ER.24H PO SCH (21:00)
[2022-01-26] MEDS: rOPINIRole 1 MG TABLET PO SCH (21:08)
[2022-01-26] MEDS: Ondansetron 4 MG/2 ML VIAL IVP PRN (21:21)
[2022-01-27 01:25] LABS: Calcium 9.3 mg/dL (8.6-10.3); Potassium 4.3 mEq/L (3.5-5.1)
[2022-01-27 01:29] LABS: Mean Corpuscular HGB Conc 27.9 g/dL (31.6-35.5); Mean Corpuscular Hemoglobin 24.8 pg (28.0-33.3)
[2022-01-27 01:31] LABS: Basophils % 0.1 %; Eosinophils % 0.3 %; Hematocrit 30.1 % (35.3-44.9); Hemoglobin 8.4 g/dL (11.5-15.4); Immature Granulocytes % 0.5 % (0-4); Lymphocytes # 0.9 K/mcL (0.6-4.6); Lymphocytes % 8.8 %; Mean Corpuscular Volume 88.8 fL (83.0-100.0); Mean Platelet Volume 12.8 fL (9.4-12.4); Monocytes # 0.9 K/mcL (0.0-1.3); Monocytes % 8.7 %; Platelet Count 184 K/mcL (140-400); Red Blood Count 3.39 M/mcL (3.82-4.97); Red Cell Distribution Width 19.9 % (11.5-14.5); Segmented Neutrophils % 81.6 %; White Blood Count 10.7 K/mcL (4.3-11.1)
[2022-01-27 01:40] LABS: Neutrophils # 8.7 K/mcL (1.6-8.9)
[2022-01-27 03:05] LABS: Anisocytosis 2+ (Not Present); Hypochromasia Present (Not Present); Platelet Estimate Normal (Normal)
[2022-01-27] MEDS: Ipratropium 1 PUFF INHALER IH SCH ×4 (03:50→20:50)
[2022-01-27] MEDS: Levalbuterol 1 PUFF INHALER IH SCH ×4 (03:51→20:50)
[2022-01-27] MEDS: Cefepime HCl 1,000 MG in 0.9 % Sodium Chloride 10 ML IVPB SCH ×2 (06:52→17:50)
[2022-01-27] MEDS: Nitroglycerin 1 INCH/GM PACKET TP SCH ×2 (07:03→14:32)
[2022-01-27] MEDS: Insulin LISPRO 300 UNITS/3 ML VIAL SUBQ SCH ×4 (10:10→20:34)
[2022-01-27] MEDS: Artificial Tears SOLN 15 ML BOTTLE BOTH EYES SCH ×4 (10:11→20:35)
[2022-01-27] MEDS: Chlorhexidine Rinse 15 ML MOUTHWASH MM SCH ×2 (10:11→20:35)
[2022-01-27] MEDS: Fluticasone Propionate Nasal 50 MCG/SPRAY BOTTLE NS SCH (10:12)
[2022-01-27] MEDS: Apixaban 5 MG TABLET PO SCH ×2 (10:12→20:31)
[2022-01-27] MEDS: levETIRAcetam 250 MG TABLET PO SCH ×2 (10:13→20:31)
[2022-01-27] MEDS: Insulin DETEMIR 100 UNIT/ML X5UNITS SUBQ SCH ×2 (10:13→20:33)
[2022-01-27] MEDS: polyethylene glycoL 3350 17 GM POWD.PACK PO SCH (10:13)
[2022-01-27] MEDS: Metoprolol XL (24 HR) Succ 50 MG TAB.ER.24H PO SCH ×2 (10:14→20:31)
[2022-01-27] MEDS: Renal Vitamin 1 CAP CAPSULE PO SCH (10:14)
[2022-01-27] MEDS: Multivit/Ca/Min/Fe/FA 1 TAB TABLET PO SCH (10:14)
[2022-01-27] MEDS: predniSONE 10 MG TABLET PO SCH (10:14)
[2022-01-27] MEDS: Budesonide/Formoterol 160/4.5 1 PUFF INH IH SCH ×2 (10:35→20:51)
[2022-01-27] MEDS: Aspirin Enteric Coated 81 MG Tablet PO SCH (17:50)
[2022-01-27] MEDS: rOPINIRole 1 MG TABLET PO SCH (20:31)
[2022-01-27] MEDS: Furosemide 20 MG/2 ML VIAL IVP SCH (20:43)
[2022-01-28] MEDS: Levalbuterol 1 PUFF INHALER IH SCH ×4 (04:59→20:15)
[2022-01-28] MEDS: Ipratropium 1 PUFF INHALER IH SCH ×4 (04:59→20:15)
[2022-01-28 05:22] LABS: Calcium 9.5 mg/dL (8.6-10.3); Potassium 4.1 mEq/L (3.5-5.1)
[2022-01-28 05:25] LABS: Basophils % 0.3 %; Hemoglobin 8.9 g/dL (11.5-15.4); Mean Corpuscular Hemoglobin 24.9 pg (28.0-33.3); Red Blood Count 3.58 M/mcL (3.82-4.97); Red Cell Distribution Width 20.2 % (11.5-14.5)
[2022-01-28 05:27] LABS: Eosinophils # 0.1 K/mcL (0.0-0.6); Eosinophils % 0.9 %; Hematocrit 32.5 % (35.3-44.9); Immature Granulocytes % 0.4 % (0-4); Lymphocytes # 1.2 K/mcL (0.6-4.6); Mean Corpuscular HGB Conc 27.4 g/dL (31.6-35.5); Mean Corpuscular Volume 90.8 fL (83.0-100.0); Mean Platelet Volume 13.8 fL (9.4-12.4); Monocytes # 0.9 K/mcL (0.0-1.3); Monocytes % 8.2 %; Nucleated Red Blood Cells 0.2 /100 WBC (0); Platelet Count 196 K/mcL (140-400); Segmented Neutrophils % 79.2 %; White Blood Count 11.2 K/mcL (4.3-11.1)
[2022-01-28 05:31] LABS: Anisocytosis 1+ (Not Present); Hypochromasia Present (Not Present); Neutrophils # 8.9 K/mcL (1.6-8.9); Platelet Estimate Normal (Normal)
[2022-01-28] MEDS: Cefepime HCl 1,000 MG in 0.9 % Sodium Chloride 10 ML IVPB SCH ×2 (06:06→17:26)
[2022-01-28] MEDS: Budesonide/Formoterol 160/4.5 1 PUFF INH IH SCH ×2 (07:39→20:16)
[2022-01-28] MEDS: Insulin LISPRO 300 UNITS/3 ML VIAL SUBQ SCH ×4 (08:56→21:18)
[2022-01-28] MEDS: Artificial Tears SOLN 15 ML BOTTLE BOTH EYES SCH ×4 (08:57→21:15)
[2022-01-28] MEDS: Furosemide 20 MG/2 ML VIAL IVP SCH (08:59)
[2022-01-28] MEDS: Aspirin Enteric Coated 81 MG Tablet PO SCH (09:01)
[2022-01-28] MEDS: Chlorhexidine Rinse 15 ML MOUTHWASH MM SCH ×2 (09:02→21:15)
[2022-01-28] MEDS: Apixaban 5 MG TABLET PO SCH ×2 (09:02→21:16)
[2022-01-28] MEDS: levETIRAcetam 250 MG TABLET PO SCH ×2 (09:03→21:16)
[2022-01-28] MEDS: Fluticasone Propionate Nasal 50 MCG/SPRAY BOTTLE NS SCH (09:03)
[2022-01-28] MEDS: polyethylene glycoL 3350 17 GM POWD.PACK PO SCH (09:04)
[2022-01-28] MEDS: predniSONE 10 MG TABLET PO SCH (09:04)
[2022-01-28] MEDS: Metoprolol XL (24 HR) Succ 50 MG TAB.ER.24H PO SCH ×2 (09:05→21:16)
[2022-01-28] MEDS: Multivit/Ca/Min/Fe/FA 1 TAB TABLET PO SCH (09:05)
[2022-01-28] MEDS: Renal Vitamin 1 CAP CAPSULE PO SCH (09:09)
[2022-01-28] MEDS: Insulin DETEMIR 100 UNIT/ML X5UNITS SUBQ SCH ×2 (09:10→21:21)
[2022-01-28] MEDS: Nitroglycerin 1 INCH/GM PACKET TP SCH (14:11)
[2022-01-28 17:34] LABS: ABG Base Excess 2 mEq/L (-2 to 3); ABG HCO3 31 mEq/L (21-27); ABG Oxygen Saturation 98 % (95-98); ABG PCO2 70 mmHg (35-45); ABG PH 7.25 pH Units (7.32-7.45); ABG PO2 134 mmHg (85-104); ABG TCO2 33 mEq/L (20-26)
[2022-01-28] MEDS: rOPINIRole 1 MG TABLET PO SCH (21:16)
[2022-01-29 04:25] LABS: Basophils % 0.2 %; Hematocrit 30.3 % (35.3-44.9); Hemoglobin 8.4 g/dL (11.5-15.4); Immature Granulocytes % 0.3 % (0-4); Mean Corpuscular HGB Conc 27.7 g/dL (31.6-35.5); Mean Corpuscular Hemoglobin 24.6 pg (28.0-33.3); Mean Corpuscular Volume 88.9 fL (83.0-100.0); Mean Platelet Volume 13.1 fL (9.4-12.4); Red Blood Count 3.41 M/mcL (3.82-4.97)
[2022-01-29 04:27] LABS: Eosinophils # 0.1 K/mcL (0.0-0.6); Eosinophils % 0.6 %; Immature Platelets 14.2 % (1.1-6.1); Lymphocytes % 8.1 %; Monocytes # 0.9 K/mcL (0.0-1.3); Monocytes % 7.3 %; Nucleated Red Blood Cells 0.2 /100 WBC (0); Platelet Count 187 K/mcL (140-400); Red Cell Distribution Width 20.3 % (11.5-14.5); Segmented Neutrophils % 83.5 %; White Blood Count 11.7 K/mcL (4.3-11.1)
[2022-01-29 04:40] LABS: Calcium 9.8 mg/dL (8.6-10.3); Potassium 4.1 mEq/L (3.5-5.1)
[2022-01-29 04:44] LABS: Neutrophils # 9.8 K/mcL (1.6-8.9)
[2022-01-29] MEDS: Levalbuterol 1 PUFF INHALER IH SCH ×4 (04:53→20:05)
[2022-01-29] MEDS: Ipratropium 1 PUFF INHALER IH SCH ×4 (04:53→20:05)
[2022-01-29] MEDS: Budesonide/Formoterol 160/4.5 1 PUFF INH IH SCH ×2 (10:13→20:05)
[2022-01-29] MEDS: Cefepime HCl 1,000 MG in 0.9 % Sodium Chloride 10 ML IVPB SCH ×2 (10:21→16:38)
[2022-01-29] MEDS: Nitroglycerin 1 INCH/GM PACKET TP SCH ×2 (10:22→16:27)
[2022-01-29] MEDS: Artificial Tears SOLN 15 ML BOTTLE BOTH EYES SCH ×4 (10:24→19:24)
[2022-01-29] MEDS: Insulin LISPRO 300 UNITS/3 ML VIAL SUBQ SCH ×4 (10:24→20:28)
[2022-01-29] MEDS: Acetaminophen 325 MG TABLET PO PRN (10:31)
[2022-01-29] MEDS: Metoprolol XL (24 HR) Succ 50 MG TAB.ER.24H PO SCH ×2 (10:33→20:20)
[2022-01-29] MEDS: predniSONE 10 MG TABLET PO SCH (10:33)
[2022-01-29] MEDS: Apixaban 5 MG TABLET PO SCH ×2 (10:33→20:21)
[2022-01-29] MEDS: Renal Vitamin 1 CAP CAPSULE PO SCH (10:34)
[2022-01-29] MEDS: Multivit/Ca/Min/Fe/FA 1 TAB TABLET PO SCH (10:34)
[2022-01-29] MEDS: Aspirin Enteric Coated 81 MG Tablet PO SCH (10:34)
[2022-01-29] MEDS: polyethylene glycoL 3350 17 GM POWD.PACK PO SCH ×2 (10:35→10:37)
[2022-01-29] MEDS: Chlorhexidine Rinse 15 ML MOUTHWASH MM SCH ×2 (10:39→20:20)
[2022-01-29] MEDS: Fluticasone Propionate Nasal 50 MCG/SPRAY BOTTLE NS SCH (10:39)
[2022-01-29] MEDS: Insulin DETEMIR 100 UNIT/ML X5UNITS SUBQ SCH ×2 (10:41→20:22)
[2022-01-29] MEDS: levETIRAcetam 250 MG TABLET PO SCH ×2 (11:42→20:21)
[2022-01-29] MEDS: *HR* Metoprolol 5 MG/5 ML VIAL IVP PRN ×2 (14:03→20:28)
[2022-01-29] MEDS ORDERED: cefTRIAXone 1,000 MG in 0.9 % Sodium Chloride 10 ML IVP SCH (19:00)
[2022-01-29] MEDS: rOPINIRole 1 MG TABLET PO SCH (20:21)
[2022-01-29] MEDS: Melatonin 3 MG TABLET PO PRN (20:21)
[2022-01-29] MEDS ORDERED: *HR* LORazepam 2 MG/ML VIAL IVP ONE (20:38)
[2022-01-30 03:04] LABS: VBG HCO3 31 mEq/L (21-27); VBG PCO2 72 mmHg (41-51); VBG PH 7.24 pH Units (7.32-7.42); VBG PO2 137 mmHg (25-50)
[2022-01-30 03:12] LABS: Mean Corpuscular Hemoglobin 24.8 pg (28.0-33.3); Red Blood Count 3.22 M/mcL (3.82-4.97)
[2022-01-30 03:13] LABS: Hematocrit 28.7 % (35.3-44.9); Immature Platelets 13.2 % (1.1-6.1); Mean Corpuscular HGB Conc 27.9 g/dL (31.6-35.5); Mean Corpuscular Volume 89.1 fL (83.0-100.0); Mean Platelet Volume 12.5 fL (9.4-12.4); Red Cell Distribution Width 20.8 % (11.5-14.5); White Blood Count 10.1 K/mcL (4.3-11.1)
[2022-01-30 03:16] LABS: Calcium 9.2 mg/dL (8.6-10.3); Magnesium 2.5 mg/dL (1.6-2.6); Potassium 4.1 mEq/L (3.5-5.1)
[2022-01-30] MEDS: Levalbuterol 1 PUFF INHALER IH SCH ×4 (04:29→20:48)
[2022-01-30] MEDS: Ipratropium 1 PUFF INHALER IH SCH ×4 (04:29→20:48)
[2022-01-30] MEDS: Nitroglycerin 1 INCH/GM PACKET TP SCH ×2 (06:00→14:04)
[2022-01-30] MEDS: Budesonide/Formoterol 160/4.5 1 PUFF INH IH SCH ×2 (07:44→20:48)
[2022-01-30] MEDS: Chlorhexidine Rinse 15 ML MOUTHWASH MM SCH ×2 (07:52→20:11)
[2022-01-30] MEDS: levETIRAcetam 250 MG TABLET PO SCH ×2 (07:52→20:12)
[2022-01-30] MEDS: Apixaban 5 MG TABLET PO SCH ×2 (07:52→20:12)
[2022-01-30] MEDS: Metoprolol XL (24 HR) Succ 50 MG TAB.ER.24H PO SCH ×2 (07:52→20:11)
[2022-01-30] MEDS: Aspirin Enteric Coated 81 MG Tablet PO SCH (07:52)
[2022-01-30] MEDS: Multivit/Ca/Min/Fe/FA 1 TAB TABLET PO SCH (07:53)
[2022-01-30] MEDS: predniSONE 10 MG TABLET PO SCH (07:53)
[2022-01-30] MEDS: polyethylene glycoL 3350 17 GM POWD.PACK PO SCH (07:55)
[2022-01-30] MEDS: Insulin LISPRO 300 UNITS/3 ML VIAL SUBQ SCH ×4 (07:55→20:41)
[2022-01-30] MEDS: Artificial Tears SOLN 15 ML BOTTLE BOTH EYES SCH ×4 (07:55→20:11)
[2022-01-30] MEDS: Fluticasone Propionate Nasal 50 MCG/SPRAY BOTTLE NS SCH (07:55)
[2022-01-30] MEDS: Insulin DETEMIR 100 UNIT/ML X5UNITS SUBQ SCH ×2 (07:56→20:42)
[2022-01-30] MEDS: Renal Vitamin 1 CAP CAPSULE PO SCH ×2 (09:12→10:12)
[2022-01-30] MEDS: *HR* OxyCODONE Immed Rel 5 MG TABLET PO PRN (10:11)
[2022-01-30] MEDS: Simethicone 80 MG TAB.CHEW PO PRN (10:11)
[2022-01-30] MEDS: cefTRIAXone 1,000 MG in 0.9 % Sodium Chloride 10 ML IVP SCH (11:14)
[2022-01-30 11:31] LABS: VBG HCO3 26 mEq/L (21-27); VBG PCO2 60 mmHg (41-51); VBG PH 7.24 pH Units (7.32-7.42); VBG PO2 86 mmHg (25-50)
[2022-01-30] MEDS: Albumin 25% 25gram/100mL 25 GM/100 ML IV.SOLN IVPB SCH ×2 (16:02→23:32)
[2022-01-30] MEDS: rOPINIRole 1 MG TABLET PO SCH (20:12)
[2022-01-30] MEDS: Melatonin 3 MG TABLET PO PRN (20:12)
[2022-01-30] MEDS: *HR* Metoprolol 5 MG/5 ML VIAL IVP PRN (20:41)
[2022-01-30] MEDS ORDERED: *HR* LORazepam 2 MG/ML VIAL IVP ONE (20:43)
[2022-01-31] MEDS: Levalbuterol 1 PUFF INHALER IH SCH ×4 (04:40→19:58)
[2022-01-31] MEDS: Ipratropium 1 PUFF INHALER IH SCH ×4 (04:40→19:58)
[2022-01-31 04:48] LABS: Red Cell Distribution Width 21.2 % (11.5-14.5)
[2022-01-31 04:50] LABS: Hematocrit 28.9 % (35.3-44.9); Immature Platelets 11.6 % (1.1-6.1); Mean Corpuscular HGB Conc 27.7 g/dL (31.6-35.5); Mean Corpuscular Hemoglobin 25.2 pg (28.0-33.3); Mean Corpuscular Volume 91.2 fL (83.0-100.0); Mean Platelet Volume 12.7 fL (9.4-12.4); Red Blood Count 3.17 M/mcL (3.82-4.97); White Blood Count 9.4 K/mcL (4.3-11.1)
[2022-01-31 04:55] LABS: VBG HCO3 29 mEq/L (21-27); VBG PCO2 74 mmHg (41-51); VBG PH 7.21 pH Units (7.32-7.42); VBG PO2 133 mmHg (25-50)
[2022-01-31 05:05] LABS: Calcium 9.4 mg/dL (8.6-10.3); Magnesium 2.6 mg/dL (1.6-2.6); Phosphorous 6.4 mg/dL (2.7-4.5); Potassium 4.1 mEq/L (3.5-5.1)
[2022-01-31] MEDS: Nitroglycerin 1 INCH/GM PACKET TP SCH ×2 (05:30→15:01)
[2022-01-31] MEDS: cefTRIAXone 1,000 MG in 0.9 % Sodium Chloride 10 ML IVP SCH (09:06)
[2022-01-31] MEDS: Albumin 25% 25gram/100mL 25 GM/100 ML IV.SOLN IVPB SCH ×2 (09:07→15:01)
[2022-01-31] MEDS: Insulin LISPRO 300 UNITS/3 ML VIAL SUBQ SCH ×4 (09:07→19:52)
[2022-01-31] MEDS: Aspirin Enteric Coated 81 MG Tablet PO SCH (09:08)
[2022-01-31] MEDS: Artificial Tears SOLN 15 ML BOTTLE BOTH EYES SCH ×4 (09:08→19:53)
[2022-01-31] MEDS: levETIRAcetam 250 MG TABLET PO SCH ×2 (09:08→19:46)
[2022-01-31] MEDS: Insulin DETEMIR 100 UNIT/ML X5UNITS SUBQ SCH ×2 (09:08→19:54)
[2022-01-31] MEDS: Fluticasone Propionate Nasal 50 MCG/SPRAY BOTTLE NS SCH (09:08)
[2022-01-31] MEDS: Apixaban 5 MG TABLET PO SCH ×2 (09:08→19:42)
[2022-01-31] MEDS: Chlorhexidine Rinse 15 ML MOUTHWASH MM SCH ×2 (09:08→19:52)
[2022-01-31] MEDS: Multivit/Ca/Min/Fe/FA 1 TAB TABLET PO SCH (09:09)
[2022-01-31] MEDS: predniSONE 10 MG TABLET PO SCH (09:09)
[2022-01-31] MEDS: polyethylene glycoL 3350 17 GM POWD.PACK PO SCH (09:09)
[2022-01-31] MEDS: Metoprolol XL (24 HR) Succ 50 MG TAB.ER.24H PO SCH ×2 (09:09→19:42)
[2022-01-31] MEDS: Renal Vitamin 1 CAP CAPSULE PO SCH (09:09)
[2022-01-31] MEDS: Budesonide/Formoterol 160/4.5 1 PUFF INH IH SCH ×2 (09:59→19:58)
[2022-01-31] MEDS: Morphine Sulfate 2 MG/ML SYRINGE IVP PRN ×2 (15:01→21:07)
[2022-01-31] MEDS ORDERED: Furosemide 40 MG/4 ML VIAL IVP ONE (15:55)
[2022-01-31] MEDS: rOPINIRole 1 MG TABLET PO SCH (19:45)
[2022-02-01] MEDS: Albumin 25% 25gram/100mL 25 GM/100 ML IV.SOLN IVPB SCH ×2 (00:26→08:11)
[2022-02-01] MEDS: Ipratropium 1 PUFF INHALER IH SCH ×3 (03:21→15:53)
[2022-02-01] MEDS: Levalbuterol 1 PUFF INHALER IH SCH ×3 (03:21→15:53)
[2022-02-01 03:23] VITALS: O2SAT 100
[2022-02-01] MEDS: Nitroglycerin 1 INCH/GM PACKET TP SCH ×2 (05:14→13:26)
[2022-02-01 05:28] LABS: Hematocrit 27.4 % (35.3-44.9); Hemoglobin 7.6 g/dL (11.5-15.4); Mean Corpuscular HGB Conc 27.7 g/dL (31.6-35.5); Mean Corpuscular Hemoglobin 25.2 pg (28.0-33.3); Mean Platelet Volume 12.8 fL (9.4-12.4); Platelet Count 169 K/mcL (140-400); Red Blood Count 3.01 M/mcL (3.82-4.97); Red Cell Distribution Width 21.2 % (11.5-14.5); White Blood Count 8.7 K/mcL (4.3-11.1)
[2022-02-01 05:31] LABS: INR 2.1; Prothrombin Time 22.9 Seconds (9.4-12.1)
[2022-02-01 05:38] LABS: VBG HCO3 31 mEq/L (21-27); VBG PCO2 71 mmHg (41-51); VBG PH 7.25 pH Units (7.32-7.42); VBG PO2 141 mmHg (25-50)
[2022-02-01 06:03] LABS: Calcium 9.5 mg/dL (8.6-10.3); Magnesium 2.7 mg/dL (1.6-2.6); Phosphorous 6.1 mg/dL (2.7-4.5); Potassium 4.1 mEq/L (3.5-5.1)
[2022-02-01] MEDS: Aspirin Enteric Coated 81 MG Tablet PO SCH ×2 (08:09→08:34)
[2022-02-01] MEDS: Insulin LISPRO 300 UNITS/3 ML VIAL SUBQ SCH ×2 (08:09→13:23)
[2022-02-01] MEDS: Renal Vitamin 1 CAP CAPSULE PO SCH ×2 (08:09→08:35)
[2022-02-01] MEDS: Multivit/Ca/Min/Fe/FA 1 TAB TABLET PO SCH ×2 (08:09→08:35)
[2022-02-01] MEDS: levETIRAcetam 250 MG TABLET PO SCH ×2 (08:09→08:34)
[2022-02-01] MEDS: Metoprolol XL (24 HR) Succ 50 MG TAB.ER.24H PO SCH ×2 (08:10→08:35)
[2022-02-01] MEDS: Apixaban 5 MG TABLET PO SCH ×2 (08:10→08:34)
[2022-02-01] MEDS: cefTRIAXone 1,000 MG in 0.9 % Sodium Chloride 10 ML IVP SCH (08:10)
[2022-02-01] MEDS: predniSONE 10 MG TABLET PO SCH ×2 (08:10→08:35)
[2022-02-01] MEDS: Chlorhexidine Rinse 15 ML MOUTHWASH MM SCH (08:13)
[2022-02-01] MEDS: Fluticasone Propionate Nasal 50 MCG/SPRAY BOTTLE NS SCH (08:13)
[2022-02-01] MEDS: polyethylene glycoL 3350 17 GM POWD.PACK PO SCH (08:13)
[2022-02-01] MEDS: Artificial Tears SOLN 15 ML BOTTLE BOTH EYES SCH ×2 (08:48→13:27)
[2022-02-01] MEDS: Insulin DETEMIR 100 UNIT/ML X5UNITS SUBQ SCH (08:48)
[2022-02-01] MEDS: Budesonide/Formoterol 160/4.5 1 PUFF INH IH SCH (09:28)
[2022-02-01] MEDS: Morphine Sulfate 2 MG/ML SYRINGE IVP PRN ×2 (10:29→13:26)
[2022-02-01 11:43] VITALS: BP 141/71; PULSE 93; TEMP 98.2
[2022-02-01] MEDS ORDERED: Furosemide 40 MG/4 ML VIAL IVP ONE (12:55)
[2022-02-01] MEDS ORDERED: Morphine Sulfate 2 MG/ML SYRINGE IVP ONE (15:28)
[2022-02-01] MEDS ORDERED: *HR* LORazepam 2 MG/ML VIAL IVP ONE (15:30)
[2022-02-01] MEDS: *HR* FentaNYL (PF) 100 MCG/2 ML VIAL IVP PRN ×6 (16:39→18:36)
[2022-02-01] MEDS: *HR* LORazepam 2 MG/ML VIAL IVP PRN ×5 (16:40→18:37)
== END 2022-02-01 18:41 | disposition expired | DRG 291 ==
LOC: 3NENU → SUATTDRO 21:25
PROVIDERS: ADMIT Internal Medicine; ATTEND Internal Medicine